=== PATIENT | female | born 1965 | race Caucasian/White ===

== ENCOUNTER 2023-07-15 10:04 | Outpatient (CLI) | payer BC, SELFPAY ==
[2023-07-15 16:51] LABS: Basophils % 0.4 % (0.1-2.0); Eosinophils % 0.1 % (0.1-12.0); Hematocrit 42.8 % (37.0-47.0); Hemoglobin 14.3 g/dL (12.2-16.2); Lymphocytes # 2.2 K/mm3 (0.7-4.5); Lymphocytes % 36.9 % (10-50); Mean Corpuscular HGB Conc 33.4 g/dL (31.8-35.4); Mean Corpuscular Volume 92.8 fl (81-99); Monocytes # 0.3 K/mm3 (0.1-1.0); Monocytes % 5.2 % (1.7-9.3); Neutrophils # 3.4 K/mm3 (1.8-7.8); Neutrophils % 57.4 % (37.0-80.0); Platelet Count 250 K/mm3 (142-424); Red Blood Count 4.61 M/mm3 (4.20-5.40); Red Cell Distribution Width 14.1 % (11.5-17.5); White Blood Count 5.9 K/mm3 (4.8-10.8)
[2023-07-15 17:23] LABS: Chloride 107 mmol/L (98-107); Potassium 3.7 mmoL/L (3.5-5.1); Sodium 140 mmol/L (136-145)
[2023-07-15 17:25] LABS: Alanine Aminotransferase 28 U/L (12-78); Aspartate Amino Transferase 26 U/L (14-36); Blood Urea Nitrogen 11 mg/dl (7-17); Estimated Glomerular Filt Rate 86 ml/min (>60); GFR (African American) 104 ML/MIN (>60)
[2023-07-15 17:26] LABS: Albumin Level 4.1 g/dl (3.5-5.0); Albumin/Globulin Ratio 1.4 (1.1-1.8); Alkaline Phosphatase 75 U/L (38-126); Anion Gap 12.7 mEq/L (5-15); Bilirubin,Total 0.5 mg/dl (0.2-1.3); Carbon Dioxide 24 mmol/L (22.0-30.0); Globulin 2.9 g/dL (1.3-3.2); Glucose 111 mg/dl (74-100)
[2023-07-15 17:43] LABS: Free Thyroxine Index 3.1 ug/dL (5.93-13.13); T4 (Thyroxine) 9.9 ug/dl (5.53-11.0); Triiodothryronine (T3) Uptake 31 % (23.5-40.5)
[2023-07-15 17:57] LABS: Thyroid Stimulating Hormone 1.65 uIU/mL (0.465-4.68)
[2023-07-15 18:12] LABS: Hemoglobin A1C 5.4 % (4.0-6.0)
[2023-07-15 19:11] LABS: Vitamin B12 502 pg/mL (239-931)
[2023-07-17 13:11] LABS: Thyroid Peroxidase Antibodies 10 IU/mL (0-34)
[2023-07-23 18:09] LABS: 1,25 Dihydroxy Vitamin D 60 pg/mL (.); 1,25-Dihydroxy, Vitamin D-2 <10 pg/mL (.); 1,25-Dihydroxy, Vitamin D-3 60 pg/mL (.)
== END 2023-07-15 23:59 | disposition home or self-care (01) ==
LOC: LAB.DROPOF 07-16 10:04
PROVIDERS: PCP Internal Medicine; Visit Provider Nurse Practitioner Psychiatric/Mental Health
DX: R53.83 Other fatigue (principal); Z79.899 Other long term (current) drug therapy
CPT/HCPCS: 80053; 82607; 82652; 83036; 84436; 84443; 84479; 85025; 86376

== ENCOUNTER 2023-08-01 08:06 | Outpatient (CLI) | payer BC, SELFPAY ==
--- NOTE | 2023-08-01 08:09 | XR_ITS ---
FINAL REPORT CLINICAL HISTORY: cervical neck pain with radiculopathy COMPARISON: None FINDINGS: CERVICAL SPINE 5 views were obtained. There is no acute fracture or malalignment. The vertebrae are normal in height. The disc spaces are preserved. The neuroforamen are adequately patent. No significant degenerative changes are present. IMPRESSION: No acute process. Reviewed, Interpreted and Dictated by Otto Hanson MD Transcribed by Haritha Dennis Authenticated and [facility]
--- NOTE | 2023-08-01 08:09 | XR_ITS ---
FINAL REPORT CLINICAL HISTORY: left knee pain COMPARISON: None FINDINGS: LEFT KNEE 3 views of the left knee were obtained. There is no acute fracture or dislocation. There is moderate medial compartment joint space narrowing. Soft tissues are unremarkable. IMPRESSION: Moderate changes of osteoarthritis without acute bony abnormality. Reviewed, Interpreted and Dictated by Otto Hanson MD Transcribed by Haritha Dennis Authenticated and [facility]
--- NOTE | 2023-08-01 08:09 | XR_ITS ---
FINAL REPORT CLINICAL HISTORY: right hip pain COMPARISON: None FINDINGS: RIGHT HIP Two views of the right hip and an AP view of the pelvis demonstrate no acute fracture or dislocation. The joint spaces appear normal. The visualized bony structures are well aligned. No soft tissue abnormality is seen. IMPRESSION: No acute bony abnormality. Reviewed, Interpreted and Dictated by Otto Hanson MD Transcribed by Haritha Dennis Authenticated and . [facility]
--- NOTE | 2023-08-01 08:09 | XR_ITS ---
FINAL REPORT CLINICAL HISTORY: right knee pain COMPARISON: None FINDINGS: 3 views of the right knee were obtained. There is no acute fracture or dislocation. There is moderate narrowing of the medial compartment joint space. There is no soft tissue abnormality. IMPRESSION: Moderate changes of osteoarthritis without acute process. Reviewed, Interpreted and Dictated by Otto Hanson MD Transcribed by Haritha Dennis Authenticated and [facility]
--- NOTE | 2023-08-01 08:09 | XR_ITS ---
FINAL REPORT CLINICAL HISTORY: left hip pain COMPARISON: None FINDINGS: LEFT HIP: Two views of the left hip with an AP view of the pelvis demonstrate no acute fracture or dislocation. The joint spaces appear normal. The visualized bony structures are well aligned. No soft tissue abnormality is seen. IMPRESSION: No acute bony abnormality. Reviewed, Interpreted and Dictated by Otto Hanson MD Transcribed by Haritha Dennis Authenticated and . [facility]
[2023-08-01 09:11] LABS: Erythrocyte Sedimentation Rate 29 mm/hr (0-30)
[2023-08-01 09:42] LABS: Chol/HDL Ratio 4.4 (1-3.5); Cholesterol 261 mg/dl (140-200); HDL Cholesterol 60 mg/dl (40-60); Iron 93 ug/dL (37-170); Magnesium 1.8 mg/dl (1.6-2.3); Triglycerides 227 mg/dl (30-150); VLDL Cholesterol 45 mg/dL (0-40)
[2023-08-01 09:52] LABS: Total Iron Binding Capacity 289 ug/dL (265-497)
[2023-08-01 09:53] LABS: Direct LDL Cholesterol 144.79 mg/dL (100-129)
[2023-08-01 10:00] LABS: 25-OH Vitamin D, Total 20.8 ng/mL (30-100)
[2023-08-13 10:59] LABS: Antinuclear Antibodies (ANA) Negative; RNA Polymerase IgG Ab <20
== END 2023-08-01 23:59 | disposition home or self-care (01) ==
LOC: LAB 08:07
PROVIDERS: PCP Nurse Practitioner Family; Visit Provider Nurse Practitioner Family
DX: M54.2 Cervicalgia (principal); M25.562 Pain in left knee; M25.552 Pain in left hip; M25.561 Pain in right knee; M25.551 Pain in right hip; E55.9 Vitamin D deficiency, unspecified; E78.5 Hyperlipidemia, unspecified; R53.83 Other fatigue; F41.9 Anxiety disorder, unspecified; F32.A Depression, unspecified; M19.90 Unspecified osteoarthritis, unspecified site; N95.1 Menopausal and female climacteric states; R94.6 Abnormal results of thyroid function studies; Z68.39 Body mass index [BMI] 39.0-39.9, adult
CPT/HCPCS: 36415; 72050; 73502; 73562; 80061; 82306; 82728; 83520; 83540; 83550; 83735; 85651; 86038

== ENCOUNTER 2024-04-23 16:20 | Outpatient (CLI) | payer OTHER, SELFPAY ==
[2024-04-23 12:14] LABS: Hematocrit 41.4 % (37.0-47.0); Lymphocytes # 1.8 K/mm3 (0.7-4.5); Lymphocytes % 35.2 % (10-50); Mean Corpuscular HGB Conc 33.8 g/dL (31.8-35.4); Mean Corpuscular Volume 88.7 fl (81-99); Mean Platelet Volume 10.3 fl (7.4-10.4); Monocytes # 0.4 K/mm3 (0.1-1.0); Monocytes % 6.9 % (1.7-9.3); Neutrophils % 57.5 % (37.0-80.0); Platelet Count 196 K/mm3 (142-424); Red Blood Count 4.67 M/mm3 (4.20-5.40); Red Cell Distribution Width 12.7 % (11.5-17.5); White Blood Count 5.2 K/mm3 (4.8-10.8)
[2024-04-23 12:52] LABS: Alanine Aminotransferase 28 U/L (12-78); Albumin Level 4.6 g/dl (3.5-5.0); Anion Gap 18.1 mEq/L (5-15); Aspartate Amino Transferase 28 U/L (14-36); Bilirubin,Total 0.6 mg/dl (0.2-1.3); Blood Urea Nitrogen 11 mg/dl (7-17); Calcium 9.7 mg/dl (8.4-10.2); Carbon Dioxide 25 mmol/L (22.0-30.0); Chloride 104 mmol/L (98-107); Estimated Glomerular Filt Rate 103 ml/min (>60); GFR (African American) 124 ML/MIN (>60); Globulin 2.5 g/dL (1.3-3.2); Glucose 87 mg/dl (74-100); Potassium 4.1 mmoL/L (3.5-5.1); Sodium 143 mmol/L (136-145); Total Protein,Serum 7.1 g/dl (6.3-8.2)
[2024-04-23 12:53] LABS: Albumin/Globulin Ratio 1.8 (1.1-1.8); Alkaline Phosphatase 63 U/L (38-126); Chol/HDL Ratio 5.2 (1-3.5); Cholesterol 268 mg/dl (140-200); HDL Cholesterol 52 mg/dl (40-60); Triglycerides 198 mg/dl (30-150); VLDL Cholesterol 40 mg/dL (0-40)
[2024-04-23 13:03] LABS: Direct LDL Cholesterol 163.29 mg/dL (100-129)
[2024-04-23 13:09] LABS: 25-OH Vitamin D, Total 24.1 ng/mL (30-100); Free T4 (Free Thyroxine) 1.09 ng/dl (0.78-2.19)
[2024-04-23 13:24] LABS: Thyroid Stimulating Hormone 1.72 uIU/mL (0.465-4.68)
[2024-04-23 13:35] LABS: HIV Combo NEGATIVE (Negative)
[2024-04-23 13:43] LABS: Hepatitis C Ab Qual. W/ RFX NEGATIVE (Negative)
[2024-04-23 13:59] LABS: Vitamin B12 672 pg/mL (239-931)
[2024-04-23 15:26] LABS: Hemoglobin A1C 5.2 % (4.0-6.0)
== END 2024-04-23 23:59 | disposition home or self-care (01) ==
LOC: LAB.DROPOF 16:20
PROVIDERS: PCP Nurse Practitioner Family; Visit Provider Nurse Practitioner Family
DX: R53.83 Other fatigue (principal); R03.0 Elevated blood-pressure reading, without diagnosis of hypertension; E78.5 Hyperlipidemia, unspecified; E55.9 Vitamin D deficiency, unspecified; Z68.41 Body mass index [BMI] 40.0-44.9, adult; Z13.1 Encounter for screening for diabetes mellitus; Z11.4 Encounter for screening for human immunodeficiency virus [HIV]; Z11.59 Encounter for screening for other viral diseases
CPT/HCPCS: 80053; 80061; 82306; 82607; 83036; 84439; 84443; 85025; 86803; 87389

== ENCOUNTER 2024-04-23 19:36 | Outpatient (CLI) | payer OTHER, SELFPAY ==
[2024-04-23 19:48] LABS: Microscopic, Urine URINE MICROSCOPIC (MICROSCOPIC)
[2024-04-23 20:44] LABS: Appearance,Urine CLEAR (Clear); Bilirubin,Urine Negative (Negative); Blood, Urine Negative (Negative); Color,Urine YELLOW (Yellow); Glucose,Urine (UA) Negative (Negative); Ketones,Urine Negative (Negative); Leukocyte Esterase,Urine Negative (Negative); Nitrate,Urine Negative (Negative); PH,Urine 6.5 (5.0-8.5); Protein,Urine Negative (Negative); Urobilinogen,Urine 0.2 EU/dl (0.2)
[2024-04-23 21:24] LABS: Bacteria,Urine 4+ /lpf; RBC,Urine Occasional #/hpf (0-3)
== END 2024-04-23 23:59 | disposition home or self-care (01) ==
LOC: LAB.DROPOF 19:37
PROVIDERS: PCP Nurse Practitioner Family; Visit Provider Nurse Practitioner Family
DX: R03.0 Elevated blood-pressure reading, without diagnosis of hypertension (principal)
CPT/HCPCS: 81001; 84156; 87086; 87088; 87186

== ENCOUNTER 2024-05-13 12:41 | Outpatient (CLI) | payer OTHER, SELFPAY ==
--- NOTE | 2024-05-13 12:45 | XR_ITS ---
FINAL REPORT CLINICAL HISTORY: right knee pain COMPARISON: None FINDINGS: RIGHT KNEE: 3 images of the right knee were obtained. There is no evidence of fracture or dislocation. There are moderate tricompartment degenerative changes, most prominent in the medial compartment. Mild osteopenia is present. No evidence of joint effusion is identified. There is no soft tissue abnormality identified. IMPRESSION: Moderate tricompartment degenerative changes as described without acute bony abnormality. Reviewed, Interpreted and Dictated by Colleen Lopez MD Transcribed by Jana Henning Authenticated and . [facility]
--- NOTE | 2024-05-13 12:45 | MM_ITS ---
PROCEDURE INFORMATION: Exam: MG Bilateral Screening 3D Mammography Exam date and time: 05/13/2024 1:05 PM Age: 58 years old Clinical indication: Screening examination TECHNIQUE: Imaging protocol: Bilateral Screening tomosynthesis and 2D mammography including computer-aided detection (CAD) when performed. COMPARISON: 1. MG DMNLR DIG MAMM-NEEDLE LOC-RT 12/25/2016 10:09 AM 2. MG DMDXUR DIG MAMM-DX UNI-RT W/CAD 12/25/2016 10:08 AM FINDINGS: MAMMOGRAPHY: Breast composition: There are scattered areas of fibroglandular density. Mass: No new or suspicious masses Architectural distortion: None. Calcifications: No suspicious calcifications. Asymmetric density: None. Skin thickening: None. Axillary adenopathy: None. IMPRESSION: No mammographic evidence of malignancy. Annual screening is recommended unless otherwise clinically indicated. ASSESSMENT: BI-RADS Category 1: Negative.
== END 2024-05-13 23:59 | disposition home or self-care (01) ==
LOC: RAD 12:43
PROVIDERS: PCP Nurse Practitioner Family; Visit Provider Nurse Practitioner Family
DX: M25.561 Pain in right knee (principal); Z12.31 Encounter for screening mammogram for malignant neoplasm of breast
CPT/HCPCS: 73562; 77063; 77067

== ENCOUNTER 2024-06-03 10:24 | Outpatient (CLI) | payer OTHER, SELFPAY | END 2024-06-03 23:59 | disposition home or self-care (01) | LOC: LAB.DROPOF 06-04 10:44 | PROVIDERS: PCP Student in an Organized Health Care Education/Training Program; Visit Provider Student in an Organized Health Care Education/Training Program | DX: N39.0 Urinary tract infection, site not specified (principal) | CPT/HCPCS: 87086; 87088; 87186 ==

== ENCOUNTER 2024-07-23 14:17 | Outpatient (CLI) | payer OTHER, SELFPAY | END 2024-07-23 23:59 | LOC: LAB.DROPOF 07-26 14:17 | PROVIDERS: PCP Nurse Practitioner Family; Visit Provider Nurse Practitioner Family | DX: J02.9 Acute pharyngitis, unspecified (principal) | CPT/HCPCS: 87070 ==

== ENCOUNTER 2024-08-09 08:51 | Day surgery (SDC) | payer OTHER, SELFPAY ==
[2024-08-06 10:03] VITALS: BMI 44.0
[2024-08-09 09:31] VITALS: BP 133/54; PULSE 70; RESP 18; TEMP 36.2
[2024-08-09] MEDS: LACTATED RINGERS 1000ML 1,000 ML 50 ML IV (09:47)
--- NOTE | 2024-08-09 10:11 | EXP.HP ---
History of Present Illness *Admission Date: 08/09/24 *Reason for visit:: Screening for colon cancer *History of present illness: Mrs. úNñez is a 59-year-old female who is here for screening for colon cancer. The examination is deemed medically necessary for initial screening colonoscopy. The patient has been seen, interviewed and examined prior to the procedure by both myself and the anesthesia provider. [facility] Disclaimer: The information contained in this section may have been updated after the patient was seen, as this information can be updated by other users. 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 Arthritis Surgical History H/O removal of cyst back of left leg History of partial hysterectomy 2010 History of ankle surgery -left ankle History of tubal ligation Family History Family/Other Hypertension Lupus Coronary artery disease Social History (Updated 08/09/24 @ 09:43 by Lani Chairez RN) Smoking Status: Never smoker second hand exposure: No alcohol intake: current counseling given: No substance use type: denies use counseling given: No current occupational status: unemployed Travel in the last 8 weeks?: None adopted: No caregiver/support person: Yes foster care: No household members: spouse and family housing: house lives independently: No marital status: number of children: 2 number of grandchildren: 3 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 Hx Recent Travel: No caffeine: Yes physical activity: none working smoke detector in home: Yes fire extinguisher in home: Yes carbon monox detector in home: No firearms in home: Yes firearms unloaded and locked: Yes do you feel safe at home: Yes victim of physical abuse: No victim of emotional abuse: No victim of sexual abuse: No would you like helpful sources: No Have you lived/traveled outside US in past 30 days?: No Contact w/someone who lives/traveled outside US past 30 days?: No Exposure to someone with infectious disease in past 14 days?: No Do you have a fever (greater than 100.4 F or 38 C)?: No Have you tested positive for COVID-19?: No Exposed to someone with COVID-19 in past 14 days?: No Do you have a sore throat?: No Do you have a cough?: No Do you have any weakness?: No Are you experiencing any nausea/vomitting?: No Do you have any diarrhea?: No Are you experiencing any unusual bleeding?: No Do you have any muscle aches/pain?: No Do you have any abdominal pain?: No Are you experiencing loss of taste or smell?: No Other Medical History Have you received the Pneumonia Vaccine: No Review of Systems Review of Systems Review of systems (narrative): Negative *Cardiovascular Comments: Negative *Gastrointestinal Comments: Negative *Genitourinary Comments: Negative *Musculoskeletal Comments: Negative *Neurologic Comments: Negative Meds Home Medications and Allergies Home Medications ?Medication ?Instructions ?Recorded ?Confirmed ?Type diphenhydramine 25 2 tab PO HS PRN pain/sleep 07/24/23 08/09/24 History mg-acetaminophen 500 mg tablet (Tylenol PM Extra Strength) coQ10 (ubiquinol) 100 mg capsule 100 mg PO BID #180 caps 08/01/23 08/09/24 Rx (Qunol Usman CoQ10) celecoxib 100 mg capsule (Celebrex) 100 mg PO BID #60 caps 04/22/24 08/09/24 Rx cholecalciferol (vitamin D3) 50 100 mcg (2 x 50 mcg (2,000 unit)) 04/24/24 08/09/24 Rx mcg (2,000 unit) capsule PO DAILY #180 caps lumateperone 42 mg capsule 42 mg PO DAILY #30 caps 07/21/24 08/09/24 Rx (Caplyta) paroxetine HCl 20 mg tablet (Paxil) 20 mg PO DAILY #30 tabs 07/21/24 08/09/24 Rx sodium,potassium,mag sulfates 17.5 See Rx Instructions PO .COMPLEX 07/27/24 08/09/24 Rx gram-3.13 gram-1.6 gram oral soln #354 mL (Suprep Bowel Prep Kit) estradiol 0.1 mg/24 hr weekly 1 patch transdermal WEEKLY #12 ea 07/30/24 08/09/24 Rx transdermal patch New Prescriptions to Start Prescriptions: Allergies Allergy/AdvReac Type Severity Reaction Status Date / Time codeine Allergy Mild Vomiting Verified 08/09/24 09:24 Exam Data for Last 24 hours Vital signs and Labs for Last 24 Hours: Temp Pulse Resp BP O2 Del Method 97.1 F L 70 18 133/54 L Room Air 08/09/24 09:31 08/09/24 09:31 08/09/24 09:31 08/09/24 09:31 08/09/24 09:31 I & O for Last 24 hours: Intake & Output 08/06/24 08/07/24 08/08/24 08/09/24 23:59 23:59 23:59 23:59 Weight 273 lb *Routine HEENT Exam Head: Present normocephalic Eye: Present EOMI and PERRL ENT: Present mucous membranes moist *Routine Neck Exam Neck: Present supple *Routine Respiratory Exam Respiratory: Present CTA bilaterally *Routine Cardiovascular Exam Cardiovascular: Present RRR *Routine Abdominal Exam Abdominal: Present soft and normoactive bowel sounds; Absent tenderness *Routine Rectal Exam Rectal:: deferred *Routine Genitalia Exam Genitalia:: deferred *Routine Extremities Exam Extremities: Absent cyanosis, clubbing or edema *Routine Skin Exam Skin: Present warm; Absent rash *Routine Neurological Exam Neurological: Present alert and oriented X3 Assessment and Plan *Assessment and plan (1) Screening for colon cancer: Status: Acute Category: Medical Code(s): Z12.11 - Encounter for screening for malignant neoplasm of colon Plan A/P: 1. Screening for colon cancer is the preprocedural diagnosis. The patient will be anesthetized/sedated using MAC sedation. The patient has been seen and examined. Cardiac and lung assessment prior to the examination is stable. Proceed with planned initial screening colonoscopy.
--- NOTE | 2024-08-09 10:14 | P.PNANES_ITS ---
[facility] Disclaimer: The information contained in this section may have been updated after the patient was seen, as this information can be updated by other users. 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 Arthritis Surgical History H/O removal of cyst back of left leg History of partial hysterectomy 2011 History of ankle surgery -left ankle History of tubal ligation Family History Family/Other Hypertension Lupus Coronary artery disease Social History (Updated 08/09/24 @ 09:43 by Lani Chairez RN) Smoking Status: Never smoker second hand exposure: No alcohol intake: current counseling given: No substance use type: denies use counseling given: No current occupational status: unemployed Travel in the last 8 weeks?: None adopted: No caregiver/support person: Yes foster care: No household members: spouse and family housing: house lives independently: No marital status: number of children: 2 number of grandchildren: 3 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 Hx Recent Travel: No caffeine: Yes physical activity: none working smoke detector in home: Yes fire extinguisher in home: Yes carbon monox detector in home: No firearms in home: Yes firearms unloaded and locked: Yes do you feel safe at home: Yes victim of physical abuse: No victim of emotional abuse: No victim of sexual abuse: No would you like helpful sources: No Have you lived/traveled outside US in past 30 days?: No Contact w/someone who lives/traveled outside US past 30 days?: No Exposure to someone with infectious disease in past 14 days?: No Do you have a fever (greater than 100.4 F or 38 C)?: No Have you tested positive for COVID-19?: No Exposed to someone with COVID-19 in past 14 days?: No Do you have a sore throat?: No Do you have a cough?: No Do you have any weakness?: No Are you experiencing any nausea/vomitting?: No Do you have any diarrhea?: No Are you experiencing any unusual bleeding?: No Do you have any muscle aches/pain?: No Do you have any abdominal pain?: No Are you experiencing loss of taste or smell?: No [facility] Anesthesia Checklist Patient Identification Patient Identification: Arm Band Structural Data Admitted From: Home Planned Operative Procedure/s: Colonoscopy Consent for Planned Operative Procedure(s) Verified: Yes Verified Documents: Surgical Consent and History and Physical NPO Status Verified Time NPO: 07:00 (finished prep) Additional verifications Anesthesia Reactions: No Airway Assessment Mallampati Score:: Class II C-Spine Mobility Assessed: Yes TMJ Mobility Assessed: Yes Dentition: Good Dentition Neurological Assessment Level of Consciousness: Awake, Alert and Appropriate Anesthesia Plan Anesthesia Risk discussed: Yes Anesthesia Plan: Verified ASA Class: III Anesthesia Type: MAC
--- NOTE | 2024-08-09 10:22 | HMH.PROCNOTE ---
[facility] Procedure Note Date: 08/09/24 Time: 10:37 Procedure Note:: Colonoscopy Procedure Report: Colonoscopy with cold snare polypectomy, cold biopsies and spot ink submucosal injection tattoo Endoscopist: Elgin Washington II, MD Referring physician: TALON Garzon Date of Procedure: August 09, 2024 Equipment: Olympus 190 variable stiffness pediatric colonoscope Sedation: MAC sedation Indication: Mrs. Núñez is a 59-year-old female who is here for initial screening colonoscopy. She reports no abdominal pain, weight loss, change in her bowel habits or rectal bleeding. She reports no family history of colon cancer. Procedure: Prior to the procedure, a history and physical exam was performed, and patient's medications and allergies were reviewed. The risks, benefits and alternatives of the sedation and procedure were discussed with the patient. All questions were answered and informed consent was obtained. The patient was brought to the procedure room. Patient identification and proposed procedure were verified by the physician and the nurse. The patient was placed in a left lateral decubitus position and the scope was passed under direct vision. Throughout the procedure, the patient's blood pressure, pulse, and oxygen saturations were monitored continuously. The colonoscopy was accomplished without difficulty. The patient tolerated the procedure well. Findings: On digital rectal examination there was normal rectal tone. There were no external hemorrhoids. The colonoscope was introduced through the anal canal to the rectum and advanced to the cecum. The ileocecal valve and appendiceal orifice were identified. The scope was advanced a short distance into the ileum which appeared grossly normal. The scope was then withdrawn into the colon. Within the descending colon at 50 cm from the anal verge was a fully circumferential apple core malignant colon cancer which was friable and fungating. This extended approximately 3 cm. There was some spontaneous bleeding with brushing through this with the colonoscope. The snare was utilized to take a couple of sections and multiple cold biopsies were obtained from this. Spot ink tattoo was injected submucosally 2 cm distal to this apple core lesion. There were 3 additional diminutive polyps (ascending x 1 (5 mm) and rectal x 2 (3 and 4 mm)). These were removed via cold snare polypectomy. Upon retroflexion within the rectum there were grade 1-2 internal hemorrhoids. The preparation was excellent throughout with [place] Preparation Score of 9. The cecal time was 15 minutes. Impression: 1. Apple core fully circumferential malignant mass of the descending colon (50 cm from anal verge)?status post multiple biopsies and spot ink submucosal tattoo 2. 3 additional diminutive colon polyps Plan: I will follow-up the biopsies and discussed the findings with the patient and family. I will make referral to colorectal surgery. We will do staging CT scan of chest, abdomen and pelvis. I will obtain CEA level.
[2024-08-09 10:41] VITALS: BP 124/74; PULSE 70; RESP 16; TEMP 37.1; O2SAT 96
[2024-08-09 10:51] VITALS: BP 114/74; PULSE 64; RESP 17; O2SAT 97
[2024-08-09 11:01] VITALS: BP 117/80; PULSE 61; RESP 17; O2SAT 96
[2024-08-09 11:06] LABS: Basophils % 0.2 % (0.1-2.0); Hematocrit 41.1 % (37.0-47.0); Hemoglobin 13.4 g/dL (12.2-16.2); Immature Granulocytes # 0.03 10^3uL; Immature Granulocytes % 0.5 %; Lymphocytes # 1.5 K/mm3 (0.7-4.5); Lymphocytes % 24.5 % (10-50); Mean Corpuscular HGB Conc 32.6 g/dL (31.8-35.4); Mean Corpuscular Hemoglobin 29.3 pg (27.0-31.2); Mean Corpuscular Volume 89.9 fl (81-99); Mean Platelet Volume 9.2 fl (7.4-10.4); Monocytes # 0.4 K/mm3 (0.1-1.0); Monocytes % 6.7 % (1.7-9.3); Neutrophils # 4.3 K/mm3 (1.8-7.8); Neutrophils % 68.1 % (37.0-80.0); Nucleated Red Blood Cells # 0 10^3/uL; Nucleated Red Blood Cells % 0 %; Platelet Count 180 K/mm3 (142-424); Red Blood Count 4.57 M/mm3 (4.20-5.40); Red Cell Distribution Width 14.3 % (11.5-17.5); Red Cell Distribution Width-SD 47.1 fL; White Blood Count 6.3 K/mm3 (4.8-10.8)
[2024-08-09 11:11] VITALS: BP 135/74; PULSE 62; RESP 17; TEMP 37.1; O2SAT 97
[2024-08-09 11:17] LABS: Albumin Level 4.2 g/dl (3.5-5.0); Chloride 107 mmol/L (98-107); Potassium 3.8 mmoL/L (3.5-5.1); Sodium 141 mmol/L (136-145)
[2024-08-09 11:20] LABS: Alanine Aminotransferase 24 U/L (12-78); Albumin/Globulin Ratio 1.4 (1.1-1.8); Alkaline Phosphatase 72 U/L (38-126); Anion Gap 7.8 mEq/L (5-15); Aspartate Amino Transferase 25 U/L (14-36); Bilirubin,Total 0.5 mg/dl (0.2-1.3); Blood Urea Nitrogen 10 mg/dl (7-17); Carbon Dioxide 30 mmol/L (22.0-30.0); Creatinine Clearance Estimated 81 mL/min (50-200); Estimated Glomerular Filt Rate 86 ml/min (>60); GFR (African American) 104 ML/MIN (>60); Globulin 2.9 g/dL (1.3-3.2); Total Protein,Serum 7.1 g/dl (6.3-8.2)
[2024-08-09 11:21] LABS: Calcium 9.5 mg/dl (8.4-10.2); Glucose 105 mg/dl (74-100)
[2024-08-09 12:24] LABS: Iron 108 ug/dL (37-170)
[2024-08-09 12:33] LABS: Total Iron Binding Capacity 315 ug/dL (265-497)
[2024-08-09 13:02] LABS: Ferritin 19.3 ng/ml (11.1-264)
[2024-08-10 08:13] LABS: CEA 1.8 ng/mL (0.0-4.7)
== END 2024-08-09 11:32 | disposition home or self-care (01) ==
PROVIDERS: PCP Nurse Practitioner Family; Visit Provider Internal Medicine Gastroenterology
PROC: 0DJD8ZZ Inspection of Lower Intestinal Tract, Via Natural or Artificial Opening Endoscopic (ICD-10-PCS; CPT 45378; principal; 2024-08-09 10:30)
DX: Z12.11 Encounter for screening for malignant neoplasm of colon (principal); C18.6 Malignant neoplasm of descending colon; D12.2 Benign neoplasm of ascending colon; K63.5 Polyp of colon; Z79.899 Other long term (current) drug therapy; Z88.5 Allergy status to narcotic agent
CPT/HCPCS: 45380; 45381; 45385; 36415; 80053; 82378; 82728; 83540; 83550; 85025; J7120

== ENCOUNTER 2024-08-20 10:34 | Outpatient (CLI) | payer OTHER, SELFPAY ==
--- OUTSIDE RECORDS SUMMARY | 2024-08-20 10:36 | XMS_ITS | Clinical Summary ---
Author Organization Healthcare Address [address] [place] [address] Care Team Providers Care Photogrammetric Engineer Name Role Phone Unavailable Primary Care Provider Unavailabl e Social History Tobacco Use Types Packs/Day Years Used Date Smoking Tobacco: Every Day Comments Unknown Sex and Gender Information Value Date Recorded Sex Assigned at Not on file Legal Sex Female 8:26 PM EDT Gender Identity Not on file Sexual Orientation Not on file Last Filed Vital Signs Vital Sign Reading Time Taken Comments Blood Pressure - - Pulse - - Temperature - - Respiratory Rate - - Oxygen Saturation - - Inhaled Oxygen Concentration - - Weight 105 kg (232 lb 4 oz) 05/03/2014 4:[address] Height 170.2 cm (5' 7 ) 12/09/2013 3:14 PM EDT Body Mass Index 36.38 12/09/2013 3:14 PM EDT Plan of Treatment Not on file
--- NOTE | 2024-08-20 10:45 | CT_ITS ---
FINAL REPORT TECHNIQUE: Pre-and postcontrast axial CT images of the abdomen and pelvis were obtained. Coronal reformatted images were also obtained and reviewed. Oral contrast was also administered. This study was performed with techniques to keep radiation doses as low as reasonably achievable (ALARA). Individualized dose reduction techniques using automated exposure control or adjustment of mA and/or kV according to the patient's size were employed. CLINICAL HISTORY: [facility] descending colon cancer-staging COMPARISON: None. FINDINGS: Pre infusion images demonstrate no evidence of kidney stones. On the post infusion images, the lung bases are clear. Moderate fatty infiltration is noted of the liver. The gallbladder is present. The spleen is mildly enlarged. The pancreas, adrenal glands, and kidneys are unremarkable. The appendix is unremarkable. There is a segment of mucosal thickening of the proximal descending colon well seen on images 48-55 of series 5. On coronal images, this abnormality measures 4.5 cm in craniocaudal dimension and findings are consistent with patient's known colonic neoplasia. There is no pelvic free fluid. The urinary bladder is incompletely distended. IMPRESSION: Segment of mucosal thickening proximal descending colon consistent with known colonic neoplasia. Reviewed, Interpreted and Dictated by Otto Hanson MD Transcribed by Haritha Dennis Authenticated and [facility]
[2024-08-20] MEDS: IOPAMIDOL-370 (76%);100ML BOTTLE 75 ML IV (10:49)
[2024-08-20] MEDS: BARIUM SULFATE(READI-CAT2);450ML BOTTLE 450 ML PO (10:49)
[2024-08-20] MEDS: SODIUM CHLORIDE 0.9% 10ML SYR (RAD ONLY) 10 ML IV (10:49)
== END 2024-08-20 23:59 | disposition home or self-care (01) ==
LOC: RAD 10:34
PROVIDERS: PCP Nurse Practitioner Family; Visit Provider Internal Medicine Gastroenterology
DX: C18.6 Malignant neoplasm of descending colon (principal)
CPT/HCPCS: 74178; Q9967

== ENCOUNTER 2024-09-01 14:19 | Outpatient (CLI) | payer OTHER, SELFPAY ==
--- OUTSIDE RECORDS SUMMARY | 2024-09-01 14:22 | XMS_ITS | Clinical Summary ---
Author Organization Healthcare Address [address] [place] [address] Care Team Providers Care First Press Operator Name Role Phone Unavailable Primary Care Provider [...]
[2024-09-01] MEDS: SODIUM CHLORIDE 0.9% 10ML SYR (RAD ONLY) 10 ML IV (14:30)
[2024-09-01] MEDS: IOPAMIDOL-370 (76%);100ML BOTTLE 75 ML IV (14:30)
--- NOTE | 2024-09-01 14:30 | CT_ITS ---
FINAL REPORT TECHNIQUE: Axial CT with contrast with 3-D MIP reconstruction This study was performed with techniques to keep radiation doses as low as reasonably achievable, (ALARA). Individualized dose reduction techniques using automated exposure control or adjustment of mA and/or kV according to the patient's size were employed. CLINICAL HISTORY: colon cancer scheduled for surgery COMPARISON: None FINDINGS: Pulmonary vessels enhance in normal fashion without evidence of embolism. Thoracic aorta shows no dissection or aneurysm. No pulmonary mass or infiltrate is present. There is evidence of old granulomatous disease. There is no significant pleural effusion. There is no significant pericardial effusion. No mediastinal or hilar adenopathy is present. IMPRESSION: 1. No evidence of thoracic metastatic disease. Reviewed, Interpreted and Dictated by Colleen Lopez MD Transcribed by Jana Henning Authenticated and [facility]
== END 2024-09-01 23:59 | disposition home or self-care (01) ==
LOC: RAD 14:20
PROVIDERS: PCP Nurse Practitioner Family; Visit Provider Internal Medicine Medical Oncology
DX: C18.6 Malignant neoplasm of descending colon (principal)
CPT/HCPCS: 71260; Q9967

== ENCOUNTER 2024-09-14 10:49 | Outpatient (CLI) | payer OTHER, SELFPAY ==
--- OUTSIDE RECORDS SUMMARY | 2024-09-14 10:53 | XMS_ITS | Clinical Summary ---
Author Organization Healthcare Address [address] [place] [address] Care Team Providers Care Hearing Examiner Name Role Phone Unavailable Primary Care Provider [...]
--- NOTE | 2024-09-14 11:19 | ECG_ITS ---
APPROVED REPORT Exam: Resting ECG HR:69 bpm ECG Measurements Heart Rate 69 AXES TX 196 P 50 QRSd 90 QRS 28 QT 363 T 67 QTc 382 Conclusion SINUS RHYTHM LOW QRS VOLTAGE IN PRECORDIAL LEADS -with late R wave progression BORDERLINE ECG UNCONFIRMED REPORT Electronically signed by : Derek Ricci MD 09/15/2024 08:20:36
[2024-09-14 11:36] LABS: Hematocrit 41.4 % (37.0-47.0); Hemoglobin 13.7 g/dL (12.2-16.2); Immature Granulocytes % 0.2 %; Mean Corpuscular HGB Conc 33.1 g/dL (31.8-35.4); Mean Corpuscular Hemoglobin 29.1 pg (27.0-31.2); Mean Corpuscular Volume 88.1 fl (81-99); Nucleated Red Blood Cells % 0 %; Platelet Count 166 K/mm3 (142-424); Red Blood Count 4.70 M/mm3 (4.20-5.40); Red Cell Distribution Width-SD 44.6 fL; White Blood Count 4.3 K/mm3 (4.8-10.8)
[2024-09-14 11:46] LABS: INR 0.95 (0.9-1.1); Prothrombin Time 10.6 seconds (10.1-12.5)
[2024-09-14 11:47] LABS: Alanine Aminotransferase 21 U/L (12-78); Albumin Level 4.4 g/dl (3.5-5.0); Albumin/Globulin Ratio 1.3 (1.1-1.8); Alkaline Phosphatase 65 U/L (38-126); Anion Gap 16.8 mEq/L (5-15); Aspartate Amino Transferase 25 U/L (14-36); Bilirubin,Total 0.5 mg/dl (0.2-1.3); Blood Urea Nitrogen 10 mg/dl (7-17); Calcium 9.5 mg/dl (8.4-10.2); Carbon Dioxide 27 mmol/L (22.0-30.0); Chloride 102 mmol/L (98-107); Creatinine,Serum 0.70 mg/dl (0.52-1.04); Estimated Glomerular Filt Rate 86 ml/min (>60); GFR (African American) 104 ML/MIN (>60); Globulin 3.3 g/dL (1.3-3.2); Glucose 102 mg/dl (74-100); Potassium 3.8 mmoL/L (3.5-5.1); Sodium 142 mmol/L (136-145); Total Protein,Serum 7.7 g/dl (6.3-8.2)
== END 2024-09-14 23:59 | disposition home or self-care (01) ==
LOC: PREOP 10:50
PROVIDERS: PCP Nurse Practitioner Family; Visit Provider Surgery
DX: Z01.810 Encounter for preprocedural cardiovascular examination (principal); Z01.812 Encounter for preprocedural laboratory examination; C18.9 Malignant neoplasm of colon, unspecified; R94.31 Abnormal electrocardiogram [ECG] [EKG]
CPT/HCPCS: 80053; 85025; 85610; 93005

== ENCOUNTER 2024-09-20 12:35 | Outpatient (CLI) | payer OTHER, SELFPAY ==
--- OUTSIDE RECORDS SUMMARY | 2024-09-20 12:38 | XMS_ITS | Clinical Summary ---
Author Organization Healthcare Address [address] [place] [address] Care Team Providers Care Stamping Die Maker Bench Name Role Phone Unavailable Primary Care Provider [...]
--- NOTE | 2024-09-20 13:56 | CA_ITS ---
APPROVED REPORT EXAM: Comprehensive 2D, Doppler, and color-flow Echocardiogram Patient Access Registrar: Temitope Berrios RT(R) Ht: 5 ft 6 in Wt: 279lbs BSA: 2.30 BP: 158/80 mmHg Indications: Dyspnea Echo Enhancing Agent Indication: Endocardial border delineation Agent(s) / Amount(s) Used: Definity 2 cc M-Mode Dimensions RVDd 3.04 cm (0.9-2.6) LA Diam 3.95 cm (1.9-4.0) LVDd 4.78 cm (3.5-5.7) LVDs 3.57 cm (3.5-5.7) IVSd 0.85 cm (0.6-1.1) PWd 0.76 cm (0.6-1.1) EF (Teich) 50.00% FS 25.30% EDV (Teich) 106.50 mL ESV (Teich) 53.30 mL LV Diastology E Decel Time 183 (160-240 msec) E/A Ratio 1.2 Mitral Valve MV E Max Luther. 76.0 (40-130 cm/s) MV A Velocity 64.0 (40-130 cm/s) E/A Ratio 1.18 MV PHT 54.0 ms Left Ventricle The left ventricle is normal size. The left ventricular systolic function is normal. The left ventricular ejection fraction is within the normal range. There is increased LV wall thickness. There is normal LV segmental wall motion. Diastolic function is indeterminate. No left ventricle thrombus noted on this study. LVEF is 55%. Right Ventricle The right ventricle is normal size. The right ventricular systolic function is normal. Atria The left atrium size is normal. The right atrium size is normal. There is no Doppler evidence of interatrial shunt. Aortic Valve Aortic valve is mildly thickened. There is no aortic valvular stenosis. No aortic regurgitation is present. Mitral Valve The mitral valve is normal in structure. No evidence of mitral valve stenosis. Trace mitral regurgitation. Tricuspid Valve Tricuspid valve is grossly normal in structure and function. Trace tricuspid regurgitation. There is insufficient TR jet to estimate RVSP. Pulmonic Valve The pulmonary valve is normal in structure. Trace pulmonic regurgitation. Great Vessels The aortic root is normal in size. IVC is normal in size and collapses >50% with inspiration. Pericardium There is no pericardial effusion. Other Information Study Quality: Technically Difficult Conclusion Technically difficult study due to poor acoustic windows. Normal biventricular systolic function. No significant valvular stenosis or regurgitation. Electronically signed by : Myah Mendiola MD 09/20/2024 23:46:24
== END 2024-09-20 23:59 | disposition home or self-care (01) ==
LOC: RT 12:36
PROVIDERS: PCP Nurse Practitioner Family; Visit Provider Nurse Practitioner Family
DX: Z01.810 Encounter for preprocedural cardiovascular examination (principal); R06.02 Shortness of breath
CPT/HCPCS: 93306

== ENCOUNTER 2024-09-21 12:40 | Outpatient (CLI) | payer OTHER, SELFPAY ==
--- NOTE | 2024-09-21 | CA_ITS ---
APPROVED REPORT Exam: Pharmacologic Technologist: Mabel Lira Ht: 5 ft 6 in Wt: 279 lbs BSA: 2.30 m2 HR: 74 bpm BP: 150/69 mmHg Stress Test Details Test: Lexiscan HR Resting HR: 74 bpm Max Heart Rate (APMHR): 161.962258 bpm Max HR Achieved: 96 bpm Target HR (85% APMHR): 136.065671 bpm % of APMHR: 59.63 Recovery HR: 81 bpm BP Resting BP: 150.0/69.0 mmHg Max BP: 157.0/82.0 mmHg Recovery BP: 151.0/90.0 mmHg ECG Stress ECG Conclusion Symptoms: Dyspnea, chest pressure, lightheaded Arrhythmias/Ectopy: - ST-T Changes: Less than [address] depression Conclusion: EKG unremarkable due to Lexiscan infusion. Electronically signed by : Myah Mendiola MD 09/23/2024 01:30:39
--- OUTSIDE RECORDS SUMMARY | 2024-09-21 12:43 | XMS_ITS | Clinical Summary ---
Author Organization Healthcare Address [address] [place] [address] Care Team Providers Care Effervescent Salts Compounder Name Role Phone Unavailable Primary Care Provider [...]
--- NOTE | 2024-09-21 13:00 | NM_ITS ---
APPROVED REPORT Exam: Nuclear Stress Test Indication: cp..soa Patient Location: Outpatient Stress Tech: Mabel Lira NM Tech:Jacquelin Thompson, ARRT, RT (R)(N) Ht: 5 ft 6 in Wt: 279 lbs Bra Size: 38ddd HR: 70 bpm BP: 150/69 mmHg BSA: 2.30 m2 TID: 1.52 BMI: 45.0 History: cp..soa Procedure: Patient received 0.4 mg of intravenous Lexiscan, resting heart rate 70 bpm, resting blood pressure 150/69 mmHg, with Lexiscan maximum heart rate achieved was 97 bpm which is 85 % of the maximum predicted heart rate and blood pressure was 157/82 mmHg. With Lexiscan, patient denied any complaint of chest pain. Cardiac Stress and Resting SPECT Images: Cardiac Stress and Resting SPECT images were obtained using technetium 99m Myoview 32.0 mCi stress and 10.40 mCi at rest. Technically difficult study due to significant soft tissue overlap with the cardiac borders. This may affect the diagnostic interpretation of the study findings. Resting on stress imaging in supine and prone positions demonstrate a medium sized, moderate, reversible perfusion defect in the mid to distal anterior LV wall. There is increase in transient ischemic dilatation ratio (TID 1.52), which may be suggestive of possible multivessel disease or balanced ischemia. Gated imaging demonstrates normal global and regional LV systolic function. LVEF is calculated 70%. Conclusion: Technically difficult study. Medium sized, moderate, reversible perfusion defect in the mid to distal anterior LV wall. Findings are suggestive of reversible ischemia. There is increase in transient ischemic dilatation ratio (TID 1.52), which may be suggestive of possible multivessel disease or balanced ischemia. Gated imaging demonstrates normal global and regional LV systolic function. LVEF is calculated 70%. Electronically signed by : Myah Mendiola MD 09/22/2024 11:50:22
[2024-09-21] MEDS: ISOTOPE MYOVIEW (PER STUDY) 1 DOSE IV (13:56)
[2024-09-21] MEDS: SODIUM CHLORIDE 0.9% 10ML SYR (RAD ONLY) 10 ML IV ×2 (13:56)
== END 2024-09-21 23:59 | disposition home or self-care (01) ==
LOC: RAD 12:41
PROVIDERS: PCP Nurse Practitioner Family; Visit Provider Nurse Practitioner Family
DX: Z01.810 Encounter for preprocedural cardiovascular examination (principal); R94.39 Abnormal result of other cardiovascular function study; R06.02 Shortness of breath; R94.31 Abnormal electrocardiogram [ECG] [EKG]; R03.0 Elevated blood-pressure reading, without diagnosis of hypertension; R53.83 Other fatigue; R07.89 Other chest pain
CPT/HCPCS: 78452; 93016; 93017; 93018; A9502; J2785

== ENCOUNTER 2024-09-24 07:29 | Day surgery (SDC) | payer OTHER, SELFPAY ==
[2024-09-24] VITALS (11 sets, daily range): BP systolic 114–161; BP diastolic 66–99; PULSE 61–76; RESP 16–18; TEMP 36.6; O2SAT 90–99; BMI 44.6
--- NOTE | 2024-09-24 07:09 | IR_ITS ---
APPROVED REPORT Patient Location: Outpatient Dial Maker: GRISELDA Tovar RT (R) PROCEDURES Left heart catheterization Left ventriculogram Selective coronary angiogram INDICATION Abnormal Myoview, Angina pectoris Informed consent was obtained prior to the procedure. COMPLICATIONS None Estimated Blood Loss: Less than 10 mls TECHNIQUE One percent lidocaine used to anesthetize the right anterior aspect of the wrist. The right radial artery was accessed via the Seldinger technique. A 6 [place] Citizen sheath was placed in the right radial artery. 2.5 mg of Verapamil, 800 mcg of nitroglycerin, 1mg Lidocaine and 5000 U Heparin were given through the arterial sheath. The JL3 catheter was also used to perform left heart catheterization, left ventriculogram and selective coronary angiogram. At the end of the procedure the sheath was removed good hemostasis was achieved using Traclet band, patient was transferred to the postop holding area in stable condition. ANGIOGRAPHIC RESULTS The left main artery Normal The left anterior descending artery Normal The circumflex artery Normal The right coronary artery Normal The KEATING ventriculogram reveals Normal 65% The left ventricular end-diastolic pressure Severely elevated at 30 mmHg IMPRESSION Normal coronary arteries Normal ejection fraction Severely elevated LVEDP PLAN 1. Start Bumex 1 mg p.o. daily plus Aldactone 50 mg daily 2. Recommend weight loss exercise 3. Cardiac rehabilitation for HFpEF Electronically signed by : Clif Ornelas MD 09/24/2024 10:19:28
[2024-09-24 08:22] LABS: Hematocrit 42.7 % (37.0-47.0); Hemoglobin 14.1 g/dL (12.2-16.2); Immature Granulocytes % 0.7 %; Mean Corpuscular HGB Conc 33.0 g/dL (31.8-35.4); Mean Corpuscular Hemoglobin 29.6 pg (27.0-31.2); Mean Corpuscular Volume 89.5 fl (81-99); Nucleated Red Blood Cells % 0 %; Platelet Count 214 K/mm3 (142-424); Red Blood Count 4.77 M/mm3 (4.20-5.40); Red Cell Distribution Width-SD 45.2 fL; White Blood Count 5.5 K/mm3 (4.8-10.8)
[2024-09-24 08:34] LABS: Anion Gap 14.0 mEq/L (5-15); Blood Urea Nitrogen 14 mg/dl (7-17); Calcium 10.0 mg/dl (8.4-10.2); Carbon Dioxide 29 mmol/L (22.0-30.0); Chloride 103 mmol/L (98-107); Creatinine Clearance Estimated 95 mL/min (50-200); Creatinine,Serum 0.60 mg/dl (0.52-1.04); Estimated Glomerular Filt Rate 102 ml/min (>60); GFR (African American) 124 ML/MIN (>60); Glucose 105 mg/dl (74-100); Potassium 4.0 mmoL/L (3.5-5.1); Sodium 142 mmol/L (136-145)
[2024-09-24] MEDS: LIDOCAINE 1% 10ML MDV 10 ML IJ (09:49)
[2024-09-24] MEDS: HEPARIN 1,000 UNITS/ML 10ML VIAL (CATH LAB) 5000 UNIT IV (09:49)
[2024-09-24] MEDS: VERAPAMIL 2.5MG/ML 2ML VIAL 2.5 MG IV (09:49)
[2024-09-24] MEDS: HEPARIN 1,000 UNITS/500ML NS (CATH LAB) 3000 UNIT IV (09:49)
[2024-09-24] MEDS: NITROGLYCERIN 800MCG/8ML SYR (CATH LAB) 800 MCG IA (09:49)
[2024-09-24] MEDS: 0.9 % SODIUM CHLORIDE 500 ML 25 ML IV (09:49)
[2024-09-24] MEDS: FENTANYL 100MCG/2ML VIAL 50 MCG IV (10:13)
[2024-09-24] MEDS: MIDAZOLAM HCL 1MG/ML 5ML VIAL 1 MG IV (10:13)
[2024-09-24] MEDS: IOPAMIDOL-370 (76%);100ML BOTTLE 50 ML IV (12:50)
== END 2024-09-24 12:45 | disposition home or self-care (01) ==
PROVIDERS: PCP Nurse Practitioner Family; Visit Provider Internal Medicine
PROC: 4A023N7 Measurement of Cardiac Sampling and Pressure, Left Heart, Percutaneous Approach (ICD-10-PCS; CPT 93452; principal; 2024-09-24 10:45)
DX: I20.89 Other forms of angina pectoris (principal); R94.39 Abnormal result of other cardiovascular function study; R94.31 Abnormal electrocardiogram [ECG] [EKG]; C18.9 Malignant neoplasm of colon, unspecified; E78.5 Hyperlipidemia, unspecified; Z79.84 Long term (current) use of oral hypoglycemic drugs; Z79.890 Hormone replacement therapy; Z79.1 Long term (current) use of non-steroidal anti-inflammatories (NSAID); Z79.899 Other long term (current) drug therapy; Z88.5 Allergy status to narcotic agent; Z82.49 Family history of ischemic heart disease and other diseases of the circulatory system
CPT/HCPCS: 80048; 85025; 93458; 99152; C1725; C1769; J1200; J1644; J3010; J7040; Q9967

== ENCOUNTER 2024-09-29 11:04 | Outpatient (CLI) | payer OTHER, SELFPAY ==
--- OUTSIDE RECORDS SUMMARY | 2024-09-29 11:07 | XMS_ITS | Clinical Summary ---
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
[2024-09-29 11:56] LABS: Chloride 102 mmol/L (98-107)
[2024-09-29 11:57] LABS: Potassium 4.2 mmoL/L (3.5-5.1); Sodium 136 mmol/L (136-145)
[2024-09-29 12:00] LABS: Anion Gap 9.2 mEq/L (5-15); Blood Urea Nitrogen 10 mg/dl (7-17); Calcium 9.7 mg/dl (8.4-10.2); Carbon Dioxide 29 mmol/L (22.0-30.0); Creatinine,Serum 0.60 mg/dl (0.52-1.04); Estimated Glomerular Filt Rate 102 ml/min (>60); GFR (African American) 124 ML/MIN (>60); Glucose 90 mg/dl (74-100)
== END 2024-09-29 23:59 | disposition home or self-care (01) ==
LOC: LAB 11:05
PROVIDERS: PCP Nurse Practitioner Family; Visit Provider Internal Medicine
DX: E78.5 Hyperlipidemia, unspecified (principal); R06.02 Shortness of breath; R03.0 Elevated blood-pressure reading, without diagnosis of hypertension
CPT/HCPCS: 36415; 80048

== ENCOUNTER 2024-10-04 06:21 | Inpatient (IN) | payer OTHER, SELFPAY ==
[2024-09-15 08:09] VITALS: BMI 43.5
--- NOTE | 2024-09-15 08:51 | SUR.PREOP ---
Cardiac clearance appointment scheduled for 09/16 @2:45 per anesthesia recommendation. Pt. notified, verbalized understanding.
--- NOTE | 2024-09-17 13:39 | SUR.PREOP ---
Cardiology appointment notes reviewed. Pt to have further testing and subsequent cardiology followup to determine clearance status. ECHO scheduled for 09/20, stress test and followup yet to be scheduled. Notified BJ in Dr. Mitchell's office of current status, will determine if procedure needs to be postponed once all testing is scheduled.
[2024-10-04] VITALS (21 sets, daily range): BP systolic 103–140; BP diastolic 55–78; PULSE 81–106; RESP 12–20; TEMP 36.1–43; O2SAT 88–97; BMI 43.5; BMI 42.5
[2024-10-04] MEDS: 0.9 % SODIUM CHLORIDE 1000ML 1,000 ML 25 ML IV (06:42)
--- NOTE | 2024-10-04 06:44 | EXP.GEN.HP ---
HPI HPI HPI: This is a 59-year-old female who presents for partial colectomy for recently-diagnosed adenocarcinoma. She has undergone cardiology evaluation including myocardial perfusion scan on September 21, 2024 and left heart catheterization on September 24, 2024. She has been diagnosed with heart failure with preserved ejection fraction. She is considered an elevated operative risk but the risk is non-modifiable and unlikely to be further mitigated by additional preoperative cardiac workup . Forwarded from office note dated August 25, 2024: This is a 59-year-old female who recently underwent colonoscopy. She was diagnosed with a left-sided colon cancer and the surgical service was consulted. Colonoscopy dated August 09, 2024 reviewed. Apple core circumferential mass at 50 cm noted. Distal spot ink submucosal tattoo completed. Pathology report reviewed. Invasive moderately-differentiated adenocarcinoma confirmed. Labs dated August 09, 2024 reviewed. CEA 1.8. Hemoglobin 13.4. Platelet count 180. Potassium 3.8. LFTs normal. CT scan of abdomen/pelvis dated August 20, 2024 reviewed. No definitive evidence of metastatic disease noted. PFSH PFSH Disclaimer: The information contained in this section may have been updated after the patient was seen, as this information can be updated by other users. Medical History Other chest pain Pre-operative cardiovascular examination Chest pain Abnormal ECG SOB (shortness of breath) Decreased libido Menopausal syndrome Cervical pain (neck) Left hip pain Radiculopathy affecting upper extremity Memory loss of unknown cause Recurrent major depression resistant to treatment Arthritis Surgical History History of cardiac cath H/O removal of cyst back of left leg History of partial hysterectomy 2010 History of ankle surgery -left ankle History of tubal ligation Family History Family/Other Hypertension Lupus Coronary artery disease Social History Smoking Status: Never smoker second hand exposure: No alcohol intake: never counseling given: No substance use type: denies use counseling given: No current occupational status: unemployed Travel in the last 8 weeks?: None adopted: No caregiver/support person: Yes foster care: No household members: spouse and family housing: house lives independently: No marital status: number of children: 2 number of grandchildren: 3 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 Hx Recent Travel: No caffeine: Yes physical activity: none working smoke detector in home: Yes fire extinguisher in home: Yes carbon monox detector in home: No firearms in home: Yes firearms unloaded and locked: Yes do you feel safe at home: Yes victim of physical abuse: No victim of emotional abuse: No victim of sexual abuse: No would you like helpful sources: No Have you lived/traveled outside US in past 30 days?: No Contact w/someone who lives/traveled outside US past 30 days?: No Exposure to someone with infectious disease in past 14 days?: No Do you have a fever (greater than 100.4 F or 38 C)?: No Have you tested positive for COVID-19?: No Exposed to someone with COVID-19 in past 14 days?: No Do you have a sore throat?: No Do you have a cough?: No Do you have any weakness?: No Do you have any diarrhea?: No Are you experiencing any unusual bleeding?: No Do you have any muscle aches/pain?: No Do you have any abdominal pain?: No Are you experiencing loss of taste or smell?: No Other Medical History Have you received the Pneumonia Vaccine: No Meds Home Medications and Allergies Home Medications ?Medication ?Instructions ?Recorded ?Confirmed ?Type coQ10 (ubiquinol) 100 mg capsule 100 mg PO BID #180 caps 08/01/23 10/04/24 Rx (Qunol Usman CoQ10) celecoxib 100 mg capsule (Celebrex) 100 mg PO BID #60 caps 04/22/24 10/04/24 Rx cholecalciferol (vitamin D3) 50 100 mcg (2 x 50 mcg (2,000 unit)) 04/24/24 10/04/24 Rx mcg (2,000 unit) capsule PO DAILY #180 caps estradiol 0.1 mg/24 hr weekly 1 patch transdermal WEEKLY #12 ea 07/30/24 10/04/24 Rx transdermal patch lumateperone 42 mg capsule 42 mg PO DAILY #30 caps 09/15/24 10/04/24 Rx (Caplyta) paroxetine HCl 40 mg tablet 40 mg PO DAILY #30 tabs 09/15/24 10/04/24 Rx temazepam 15 mg capsule 15 mg PO HS #30 caps 09/15/24 10/04/24 Rx bumetanide 1 mg tablet 1 mg PO DAILY #30 tabs 09/24/24 10/04/24 Rx dapagliflozin propanediol 10 mg 10 mg PO DAILY #30 tabs 09/29/24 10/04/24 Rx tablet (Farxiga) spironolactone 25 mg tablet 25 mg PO DAILY #30 tabs 09/30/24 10/04/24 Rx (Aldactone) New Prescriptions to Start Prescriptions: Allergies Allergy/AdvReac Type Severity Reaction Status Date / Time codeine Allergy Mild Vomiting Verified 10/04/24 06:47 Exam Constitutional Constitutional: no acute distress *Routine HEENT Exam Head: Present normocephalic Eye: Present EOMI ENT: Present mucous membranes moist *Routine Neck Exam Neck: Present full ROM *Routine Respiratory Exam Respiratory: Absent respiratory distress *Routine Cardiovascular Exam Cardiovascular: Absent tachycardia *Routine Abdominal Exam Abdominal: Present soft *Routine Rectal Exam Rectal:: deferred *Routine Genitalia Exam Genitalia:: deferred *Routine Extremities Exam Extremities: Present full ROM *Routine Skin Exam Skin: Absent erythema *Routine Neurological Exam Neurological: Present alert Assessment and Plan *Assessment and plan (1) Cancer of descending colon: Status: Acute Category: Medical Code(s): C18.6 - Malignant neoplasm of descending colon (2) (HFpEF) heart failure with preserved ejection fraction: Status: Acute Qualifiers: Heart failure chronicity: chronic Qualified Code(s): I50.32 - Chronic diastolic (congestive) heart failure Category: Medical Code(s): I50.30 - Unspecified diastolic (congestive) heart failure (3) Bipolar II disorder, moderate, depressed, with anxious distress: Status: Acute Category: Medical Code(s): F31.81 - Bipolar II disorder (4) HLD (hyperlipidemia): Status: Acute Qualifiers: Hyperlipidemia type: unspecified Qualified Code(s): E78.5 - Hyperlipidemia, unspecified Category: Medical Code(s): E78.5 - Hyperlipidemia, unspecified (5) Elevated BP without diagnosis of hypertension: Status: Acute Category: Medical Code(s): R03.0 - Elevated blood-pressure reading, without diagnosis of hypertension Plan Partial colectomy today (left colectomy versus extended left colectomy versus splenic flexure colectomy versus extended sigmoid colectomy pending intraoperative findings) I have discussed the risks and benefits including, but not limited to: Bleeding Infection Damage to surrounding tissue Inherent risks of sedation The patient agrees to proceed.
--- NOTE | 2024-10-04 06:52 | EXP.COCOPNOT ---
Date of procedure: 10/04/24 Pre-op Diagnosis:: Adenocarcinoma of the colon (50 cm from anal verge) Post-op Diagnosis:: Same Procedure performed:: Left hemicolectomy Surgeon:: Fer Mitchell MD WILDLIFE CONSERVATION PROFESSOR:: Colt Grier Anesthesia: GETA Estimated blood loss (mL): 250 Operative findings:: Tattoo noted at splenic flexure Surrounding inflammatory response throughout left upper quadrant secondary to tattoo placement or known malignancy Operative note:: After informed consent was obtained the patient was taken to the operating room and placed in the supine position. General anesthesia was induced and her abdomen was prepped and draped in a sterile fashion. An upper midline laparotomy incision was completed sharply. A combination of sharp dissection, retraction, and electrocautery was utilized to transect through the deeper subcutaneous tissue to the level of the midline fascia. The fascia was sharply entered with Metzenbaum scissors. Electrocautery was then utilized to extend the fascial incision to the epigastric region and below the umbilicus. Palpation and inspection confirmed fairly severe inflammatory response throughout the right upper quadrant. The splenic flexure tattoo was also noted. Beginning distally, the lateral white line was carefully taken with a combination of blunt dissection and electrocautery. No obvious injury to surrounding tissue/ureter was noted. Dissection then continued with a combination of electrocautery and the Enseal device around the lateral margin of the splenic flexure/tumor. This was taken to the mid transverse colon. A transection site at the mid transverse colon and along the distal sigmoid colon was noted. A linear stapling device was utilized to transect the colon at these 2 sites. The intervening mesentery was taken with a combination of the Enseal device and clamp/cut/tie method. The specimen was marked for distal margin and passed off for pathologic evaluation. An end-to-end hand-sewn anastomosis was then completed with a combination of 3-0 Nurolon serosal interrupted sutures and a running Vicryl mucosal closure. The mesenteric defect was reapproximated utilizing running Vicryl suture. The anastomosis was surrounded by remaining omentum. Fascia was then reapproximated with running #2 Novafil. Skin was closed with a combination of 4-0 nylon and aleksandra. Dressings were applied and the patient was transferred to recovery in stable condition. Condition: stable Disposition: PACU Specimens:: Left colon Complications:: No immediate Colon Resection Operation performed with curative intent: Yes Tumor location: Splenic flexure Extent of colon and vascular resection: Left hemicolectomy
--- NOTE | 2024-10-04 07:10 | P.PNANES_ITS ---
[facility] Disclaimer: The information contained in this section may have been updated after the patient was seen, as this information can be updated by other users. Medical History Other chest pain Pre-operative cardiovascular examination Chest pain Abnormal ECG SOB (shortness of breath) Decreased libido Menopausal syndrome Cervical pain (neck) Left hip pain Radiculopathy affecting upper extremity Memory loss of unknown cause Recurrent major depression resistant to treatment Arthritis Surgical History History of cardiac cath H/O removal of cyst back of left leg History of partial hysterectomy 2011 History of ankle surgery -left ankle History of tubal ligation Family History Family/Other Hypertension Lupus Coronary artery disease Social History Smoking Status: Never smoker second hand exposure: No alcohol intake: never counseling given: No substance use type: denies use counseling given: No current occupational status: unemployed Travel in the last 8 weeks?: None adopted: No caregiver/support person: Yes foster care: No household members: spouse and family housing: house lives independently: No marital status: number of children: 2 number of grandchildren: 3 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 Hx Recent Travel: No caffeine: Yes physical activity: none working smoke detector in home: Yes fire extinguisher in home: Yes carbon monox detector in home: No firearms in home: Yes firearms unloaded and locked: Yes do you feel safe at home: Yes victim of physical abuse: No victim of emotional abuse: No victim of sexual abuse: No would you like helpful sources: No Have you lived/traveled outside US in past 30 days?: No Contact w/someone who lives/traveled outside US past 30 days?: No Exposure to someone with infectious disease in past 14 days?: No Do you have a fever (greater than 100.4 F or 38 C)?: No Have you tested positive for COVID-19?: No Exposed to someone with COVID-19 in past 14 days?: No Do you have a sore throat?: No Do you have a cough?: No Do you have any weakness?: No Do you have any diarrhea?: No Are you experiencing any unusual bleeding?: No Do you have any muscle aches/pain?: No Do you have any abdominal pain?: No Are you experiencing loss of taste or smell?: No [facility] Anesthesia Checklist Patient Identification Patient Identification: Arm Band and Family Structural Data Admitted From: Home Planned Operative Procedure/s: Left Colectomy Consent for Planned Operative Procedure(s) Verified: Yes Verified Documents: Surgical Consent and History and Physical NPO Status Verified Time NPO: 00:00 Additional verifications Patient : No Anesthesia Reactions: No Hx Blood Transfusions: No Blood Transfusion Reaction: No Cephalosporin Allergy: No Previous Colonoscopy: Yes Airway Assessment Mallampati Score:: Class II C-Spine Mobility Assessed: Yes TMJ Mobility Assessed: Yes Dentition: Good Dentition Neurological Assessment Level of Consciousness: Awake, Alert, Appropriate and Follows Commands Hx Seizures: No Numbness or tingling in extremities: No Anesthesia Plan Anesthesia Risk discussed: Yes ASA Class: II Anesthesia Type: General
[2024-10-04] MEDS: METRONIDAZ/SOD CHL 500 MG/100 ML PIGGYBACK 200 MG IV (07:59)
--- NOTE | 2024-10-04 08:13 | HMH.PHAINT1 ---
Pharmacy Intervention Comments: MEDICATION RECONCILIATION COMPLETED ON PATIENT USING EXTERNAL FILL HISTORY FROM PHARMACY AND LIST FROM PCP/CARDIOLOGY. -JOHNATHAN STOUT, TYD
--- NOTE | 2024-10-04 11:50 | EXP.ANES.I ---
[facility] Anesthesia Record Part I Anesthesia Record I Intake, IV Amount: 2,300 Hydration: Adequate Estimated blood loss (mL): 250 Urine output (mL): 210 Blood Products used (#): none Blood Pressure: 104/59 SaO2: 93 Pulse Rate: 105 Airway Patency: Patent Respiratory Rate: 14 Temperature: 98.2 F Patient is:: Drowsy and Stable Stable to PACU at:: 11:45
[2024-10-04] MEDS: MORPHINE 2MG/ML SYRINGE 2 MG IV (12:08)
[2024-10-04] MEDS: MEPERIDINE 50MG/ML 1ML SYRINGE 50 MG ×2 (12:08→12:13)
--- OUTSIDE RECORDS SUMMARY | 2024-10-04 12:47 | XMS_ITS | Clinical Summary ---
Author Organization Healthcare Address [address] [place] [address] Care Team Providers Care Change Management Analyst Name Role Phone Unavailable Primary Care Provider [...]
[2024-10-04] MEDS: MORPHINE 2MG/ML SYRINGE 1 MG IV ×3 (13:53→21:29)
[2024-10-04 13:55] LABS: Microscopic, Urine URINE MICROSCOPIC (MICROSCOPIC)
[2024-10-04 13:57] LABS: Color,Urine YELLOW (Yellow); Glucose,Urine (UA) Negative (Negative); Ketones,Urine Negative (Negative); Leukocyte Esterase,Urine Negative (Negative); PH,Urine 6.0 (5.0-8.5); Protein,Urine TRACE (Negative); Specific Gravity, Urine >= 1.030 (1.005-1.030); Urobilinogen,Urine 0.2 EU/dl (0.2)
[2024-10-04 14:05] LABS: Bilirubin,Urine 1+ (Negative)
[2024-10-04 14:09] LABS: Bacteria,Urine Trace /lpf; Hyaline Casts,Urine OCC #/lpf (0); Mucus,Urine 1+ /lpf; Squamous Epithelial Cell,Urine Occasional #/hpf (0-5); WBC,Urine Occasional #/hpf (0-3)
[2024-10-04] MEDS: PIPERACILLIN/TAZO 4.5 GM in 0.9 % SODIUM CHLORIDE 100 ML IV ×2 (14:29→18:13)
--- NOTE | 2024-10-04 16:41 | EXP.ANES.II ---
[facility] Anesthesia Record Part II Anesthesia Record Part II Discharge Time: 12:15 Destination: Medical Surgical Department PACU nurse assessment reviewed?: Yes Patient Condition:: Good Anesthesia Complications:: None Swallowing reflex intact?: Yes Airway Patency: Patent Cyanosis?: No Blood Pressure: 124/55 SaO2: 92 Respiratory Rate: 20 Pulse Rate: 106 Temperature: 98.5 F Mental Status: Alert & Oriented Pain level:: 4 Nausea and/or vomitting:: None Intake, IV Amount: 0 Hydration: Adequate
--- NOTE | 2024-10-04 17:10 | PC.NURSE ---
Pt has c/o discomfort to abdomen and back since arrival to floor. Morphine administered. DSG to abdomen is C/D/I . ABdominal binder is in place. She is currently on 5L NC. Pt educated on turning and repositioning. is at bedside. Call light within reach.
[2024-10-04] MEDS: LACTATED RINGERS 1000ML 1,000 ML 125 ML IV ×2 (18:13→22:17)
[2024-10-04] MEDS: PANTOPRAZOLE 40MG VIAL 40 MG IV (20:47)
[2024-10-04] MEDS: SODIUM CHLORIDE 0.9% 10ML VIAL 10 ML IV (20:47)
[2024-10-05] VITALS (13 sets, daily range): BP systolic 117–160; BP diastolic 63–87; PULSE 76–110; RESP 18–24; TEMP 36.4–37.6; O2SAT 90–96; BMI 44.1
[2024-10-05] MEDS: PIPERACILLIN/TAZO 4.5 GM in 0.9 % SODIUM CHLORIDE 100 ML IV ×5 (00:04→23:56)
[2024-10-05] MEDS: MORPHINE 2MG/ML SYRINGE 1 MG IV ×5 (02:38→14:09)
[2024-10-05 06:16] LABS: Hematocrit 38.4 % (37.0-47.0); Hemoglobin 12.3 g/dL (12.2-16.2); Immature Granulocytes % 0.5 %; Mean Corpuscular HGB Conc 32.0 g/dL (31.8-35.4); Mean Corpuscular Hemoglobin 29.6 pg (27.0-31.2); Mean Corpuscular Volume 92.5 fl (81-99); Nucleated Red Blood Cells % 0 %; Platelet Count 230 K/mm3 (142-424); Red Blood Count 4.15 M/mm3 (4.20-5.40); Red Cell Distribution Width-SD 48.2 fL; White Blood Count 13.2 K/mm3 (4.8-10.8)
[2024-10-05 06:38] LABS: Anion Gap 8.2 mEq/L (5-15); Blood Urea Nitrogen 10 mg/dl (7-17); Calcium 9.5 mg/dl (8.4-10.2); Carbon Dioxide 28 mmol/L (22.0-30.0); Chloride 106 mmol/L (98-107); Creatinine Clearance Estimated 71 mL/min (50-200); Creatinine,Serum 0.80 mg/dl (0.52-1.04); Estimated Glomerular Filt Rate 73 ml/min (>60); GFR (African American) 89 ML/MIN (>60); Glucose 132 mg/dl (74-100); Potassium 4.2 mmoL/L (3.5-5.1); Sodium 138 mmol/L (136-145)
[2024-10-05] MEDS: LACTATED RINGERS 1000ML 1,000 ML 125 ML IV (06:38)
--- NOTE | 2024-10-05 07:07 | P.PN_ITS ---
Subjective Narrative: She states that she is burning up and that her back is hurting . Exam Data for Last 24 hours Vital signs and Labs for Last 24 Hours: Temp Pulse Resp BP Pulse Ox O2 Del Method O2 Flow Rate 98.7 F 85 21 135/63 92 L Nasal Cannula 4 10/05/24 04:00 10/05/24 06:00 10/05/24 06:00 10/05/24 06:00 10/05/24 06:00 10/05/24 06:00 10/05/24 06:00 Laboratory Results - last 24 hr 10/04/24 06:40: Blood Type A Positive, Antibody Screen Negative 10/04/24 07:48: Urine Color Yellow, Urine Appearance Clear, Urine pH 6.0, Ur Sp ecific [place] >= 1.030, Urine Protein Trace, Urine Glucose (UA) Negative, Urine Ketones Negative, Urine Blood Negative, Urine Nitrate Negative, Urine Bilirubin 1+ A, Urine Urobilinogen 0.2, Ur Leukocyte Esterase Negative, Urine RBC None, Urine WBC Occasional, Ur Squamous Epith Cells Occasional, Urine Bacteria Trace, Hyaline Casts Occ, Urine Mucus 1+ 10/05/24 05:50: WBC 13.2 H, RBC 4.15 L, Hgb 12.3, Hct 38.4, MCV 92.5, MCH 29.6, MCHC 32.0, RDW 14.3, Plt Count 230, MPV 9.7, Neut % (Auto) 83.2 H, Lymph % (Auto) 7.8 L, Murray % (Auto) 8.3, Eos % (Auto) 0.0 L, Baso % (Auto) 0.2, Neut # (Auto) 11.0 H, Lymph # (Auto) 1.0, Murray # (Auto) 1.1 H, Eos # (Auto) 0.0, Baso # (Auto) 0.0, Sodium 138, Potassium 4.2, Chloride 106, Carbon Dioxide 28, Anion Gap 8.2, BUN 10, Creatinine 0.80, Estimated Creat Clear 71, Estimated GFR 73, Est GFR ( Amer) 89, Glucose 132 H, Calcium 9.5 I & O for Last 24 hours: Intake & Output 10/02/24 10/03/24 10/04/24 10/05/24 11:59 11:59 11:59 11:59 Intake Total 2300 / 2300 1560 / 1560 Output Total 875 / 875 Balance 2300 / 2300 685 / 685 Weight 270 lb 274 lb 12.8 oz Constitutional Constitutional: no acute distress *Routine Respiratory Exam Respiratory: Absent respiratory distress *Routine Cardiovascular Exam Cardiovascular: Absent tachycardia *Routine Abdominal Exam Comments: Dressings in place Progress Note: A&P Assessment and plan (1) Cancer of descending colon: Status: Acute Assessment and plan: Stable postoperative day 1 status post left hemicolectomy Remove Owen catheter Ambulate (2) (HFpEF) heart failure with preserved ejection fraction: Status: Acute Assessment and plan: Continue home medications (3) Bipolar II disorder, moderate, depressed, with anxious distress: Status: Acute Assessment and plan: Home medications (4) HLD (hyperlipidemia): Status: Acute (5) Elevated BP without diagnosis of hypertension: Status: Acute
--- NOTE | 2024-10-05 08:01 | EXP.HP ---
History of Present Illness *Admission Date: 10/05/24 *Reason for visit:: dyspnea, abdominal pain, s/p colon resection. *History of present illness: Ms. Núñez is a 59-year-old female with morbid obesity, HFpEF, mood disorder, who presented with elective partial colectomy due to recently diagnosed adenocarcinoma. Underwent partial colectomy with end to end anastomosis on 10/04. Procedure complicated by inflammation and patient's body habitus. Successful anastomosis achieved. Admitted to ICU after procedure for further monitoring. Discussed case with surgery this morning, they request to transfer patient to our service for medical management and they will assist with surgical follow-up for resection. Of note, she had a myocardial perfusion scan on September 21 and left heart cath on September 24. Did not require any stents at that time. In regard to her GI history, she had a colonoscopy on August 09 that showed apple core circumferential mass at 50 cm. Pathology positive for invasive moderately differentiated adenocarcinoma. CEA of 1.8. This morning on rounds she complains of abdominal pain and feels short of breath. Currently on 4 L. Was on room air prior to surgery. Denies chest pain, nausea or vomiting. Feels she has gas to pass but cannot pass flatus yet. Pain with movement and ambulation. Owen removed this morning. Afebrile. Hemodynamically stable. at bedside. [facility] Disclaimer: The information contained in this section may have been updated after the patient was seen, as this information can be updated by other users. Medical History Other chest pain Pre-operative cardiovascular examination Chest pain Abnormal ECG SOB (shortness of breath) Decreased libido Menopausal syndrome Cervical pain (neck) Left hip pain Radiculopathy affecting upper extremity Memory loss of unknown cause Recurrent major depression resistant to treatment Arthritis Surgical History History of cardiac cath H/O removal of cyst History of partial hysterectomy History of ankle surgery History of tubal ligation Family History Family/Other Hypertension Lupus Coronary artery disease Social History Smoking Status: Never smoker second hand exposure: No alcohol intake: never counseling given: No substance use type: denies use counseling given: No current occupational status: unemployed Travel in the last 8 weeks?: None adopted: No caregiver/support person: Yes foster care: No household members: spouse and family housing: house lives independently: No marital status: number of children: 2 number of grandchildren: 3 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 Hx Recent Travel: No caffeine: Yes physical activity: none working smoke detector in home: Yes fire extinguisher in home: Yes carbon monox detector in home: No firearms in home: Yes firearms unloaded and locked: Yes do you feel safe at home: Yes victim of physical abuse: No victim of emotional abuse: No victim of sexual abuse: No would you like helpful sources: No Have you lived/traveled outside [place] in past 30 days?: No Contact w/someone who lives/traveled outside US past 30 days?: No Exposure to someone with infectious disease in past 14 days?: No Do you have a fever (greater than 100.4 F or 38 C)?: No Have you tested positive for COVID-19?: No Exposed to someone with COVID-19 in past 14 days?: No Do you have a sore throat?: No Do you have a cough?: No Do you have any weakness?: No Do you have any diarrhea?: No Are you experiencing any unusual bleeding?: No Do you have any muscle aches/pain?: No Do you have any abdominal pain?: No Are you experiencing loss of taste or smell?: No Other Medical History Have you received the Flu Vaccine for this season: No Have you received the Pneumonia Vaccine: No Review of Systems Review of Systems Review of systems (narrative): 14 point review of systems performed, pertinent positives and negatives as per HPI Meds Home Medications and Allergies Home Medications ?Medication ?Instructions ?Recorded ?Confirmed ?Type coQ10 (ubiquinol) 100 mg capsule 100 mg PO BID #180 caps 08/01/23 10/04/24 Rx (Qunol Usman CoQ10) celecoxib 100 mg capsule (Celebrex) 100 mg PO BID #60 caps 04/22/24 10/04/24 Rx cholecalciferol (vitamin D3) 50 100 mcg (2 x 50 mcg (2,000 unit)) 04/24/24 10/04/24 Rx mcg (2,000 unit) capsule PO DAILY #180 caps estradiol 0.1 mg/24 hr weekly 1 patch transdermal WEEKLY #12 ea 07/30/24 10/04/24 Rx transdermal patch lumateperone 42 mg capsule 42 mg PO DAILY #30 caps 09/15/24 10/04/24 Rx (Caplyta) paroxetine HCl 40 mg tablet 40 mg PO DAILY #30 tabs 09/15/24 10/04/24 Rx temazepam 15 mg capsule 15 mg PO HS #30 caps 09/15/24 10/04/24 Rx bumetanide 1 mg tablet 1 mg PO DAILY #30 tabs 09/24/24 10/04/24 Rx dapagliflozin propanediol 10 mg 10 mg PO DAILY #30 tabs 09/29/24 10/04/24 Rx tablet (Farxiga) spironolactone 25 mg tablet 25 mg PO DAILY #30 tabs 09/30/24 10/04/24 Rx (Aldactone) New Prescriptions to Start Prescriptions: Allergies Allergy/AdvReac Type Severity Reaction Status Date / Time codeine Allergy Mild Vomiting Verified 10/04/24 06:47 Exam Data for Last 24 hours Vital signs and Labs for Last 24 Hours: Temp Pulse Resp BP Pulse Ox O2 Del Method O2 Flow Rate 98.7 F 85 21 135/63 92 L Nasal Cannula 4 10/05/24 04:00 10/05/24 06:00 10/05/24 06:00 10/05/24 06:00 10/05/24 06:00 10/05/24 06:00 10/05/24 06:00 Laboratory Results - last 24 hr 10/04/24 06:40: Blood Type A Positive, Antibody Screen Negative 10/04/24 07:48: Urine Color Yellow, Urine Appearance Clear, Urine pH 6.0, Ur Specific [place] >= 1.030, Urine Protein Trace, Urine Glucose (UA) Negative, Urine Ketones Negative, Urine Blood Negative, Urine Nitrate Negative, Urine Bilirubin 1+ A, Urine Urobilinogen 0.2, Ur Leukocyte Esterase Negative, Urine RBC None, Urine WBC Occasional, Ur Squamous Epith Cells Occasional, Urine Bacteria Trace, Hyaline Casts Occ, Urine Mucus 1+ 10/05/24 05:50: WBC 13.2 H, RBC 4.15 L, Hgb 12.3, Hct 38.4, MCV 92.5, MCH 29.6, MCHC 32.0, RDW 14.3, Plt Count 230, MPV 9.7, Neut % (Auto) 83.2 H, Lymph % (Auto) 7.8 L, [place] % (Auto) 8.3, Eos % (Auto) 0.0 L, Baso % (Auto) 0.2, Neut # (Auto) 11.0 H, Lymph # (Auto) 1.0, [place] # (Auto) 1.1 H, Eos # (Auto) 0.0, Baso # (Auto) 0.0, Sodium 138, Potassium 4.2, Chloride 106, Carbon Dioxide 28, Anion Gap 8.2, BUN 10, Creatinine 0.80, Estimated Creat Clear 71, Estimated GFR 73, Est GFR ( Amer) 89, Glucose 132 H, Calcium 9.5 I & O for Last 24 hours: Intake & Output 10/02/24 10/03/24 10/04/24 10/05/24 23:59 23:59 23:59 23:59 Intake Total 2760 / 3860 1100 / 1100 Output Total 600 / 600 275 / 275 Balance 2160 / 3260 825 / 825 Weight 119.862 kg 124.647 kg Constitutional Constitutional: mild distress, morbidly obese and cooperative *Routine HEENT Exam Head: Present normocephalic Eye: Present EOMI ENT: Present mucous membranes moist *Routine Neck Exam Neck: Present full ROM *Routine Respiratory Exam Respiratory: Present CTA bilaterally and distant breath sounds; Absent accessory muscle use, respiratory distress, rhonchi, wheezes or crackles *Routine Cardiovascular Exam Cardiovascular: Present RRR; Absent tachycardia *Routine Abdominal Exam Abdominal: Present soft and tenderness; Absent distended or rebound Comments: Binder in place. Diffusely tender, worse in right lower quadrant *Routine Rectal Exam Rectal:: deferred *Routine Genitalia Exam Genitalia:: deferred *Routine Extremities Exam Extremities: Present edema (Trace in ankles) and full ROM; Absent cyanosis or clubbing *Routine Skin Exam Skin: Present intact; Absent erythema *Routine Neurological Exam Neurological: Present alert, oriented X3 and moving all extremities; Absent altered mental status Assessment and Plan *Assessment and plan (1) Cancer of descending colon: Status: Acute Category: Medical Code(s): C18.6 - Malignant neoplasm of descending colon (2) (HFpEF) heart failure with preserved ejection fraction: Status: Acute Qualifiers: Heart failure chronicity: chronic Qualified Code(s): I50.32 - Chronic diastolic (congestive) heart failure Category: Medical Code(s): I50.30 - Unspecified diastolic (congestive) heart failure (3) Bipolar II disorder, moderate, depressed, with anxious distress: Status: Acute Category: Medical Code(s): F31.81 - Bipolar II disorder (4) HLD (hyperlipidemia): Status: Acute Qualifiers: Hyperlipidemia type: unspecified Qualified Code(s): E78.5 - Hyperlipidemia, unspecified Category: Medical Code(s): E78.5 - Hyperlipidemia, unspecified (5) Elevated BP without diagnosis of hypertension: Status: Acute Category: Medical Code(s): R03.0 - Elevated blood-pressure reading, without diagnosis of hypertension (6) Morbid obesity with BMI of 40.0-44.9, adult: Status: Chronic Category: Medical Code(s): E66.01 - Morbid (severe) obesity due to excess calories; Z68.41 - Body mass index [BMI] 40.0-44.9, adult Plan 59-year-old female with history of HFpEF, morbid obesity, bipolar 2. Discussed case with surgery, she underwent partial colectomy 10/04. End-to-end anastomosis achieved. Requesting our services to take over medical management of patient. Patient currently on 4 L. Will discontinue IV fluids to decrease risk for volume overload in the setting of her HFpEF. Has normal kidney function at this time. Does not appear dry. Continues to require inpatient care. Downgrade to [facility]. Problems addressed as follows: Chronic HFpEF - Does not appear to be in acute exacerbation at this time. Will continue Bumex 1 mg transition to IV daily - Continue dapagliflozin 10 mg daily - Continue spironolactone 25 mg daily Supplemental oxygen postsurgery. Wean oxygen as tolerated for goal sats greater 90%. Will obtain a chest x-ray. Patient does have white count of 13, in the postop setting suspect the marginalization versus infection. Hemoglobin stable at 12. Platelets 230. - On prophylactic antibiotics post abdominal surgery. Will not broaden at this time, low suspicion for pneumonia. Continue Zosyn 4.5 g every 6 hours scheduled - Monitor for improvement with diuresis - Kidney function stable with BUN 10, creatinine 0.8. Electrolytes normal with sodium 138, potassium 4.2, bicarb 28. Glucose 132 Morbid obesity complicates all aspects of her care Sleep disorder: Continue temazepam 15 mg nightly Bipolar 2: Continue home regimen of Paxil 40 mg daily, lumateperone 42 mg daily. Appears stable Partial colectomy 10/04/2024. -Defer management to surgery. Advance diet per surgery recommendations - Morphine 2 mg IV every 2 hours for moderate to severe pain. Monitor for toxicity. Repeat BMP and CBC ordered for the morning. Continue bowel regimen with docusate 100 mg daily Continue pantoprazole 40 mg nightly IV for GERD/GI prophylaxis Full code N.p.o. except ice chips Lovenox 40 mg subcu twice daily
[2024-10-05] MEDS: BUMETANIDE 1 MG TABLET PO (08:36)
[2024-10-05] MEDS: SPIRONOLACTONE 25MG TABLET 25 MG PO (08:38)
--- NOTE | 2024-10-05 09:59 | PC.NURSE ---
All patient care and documentation provided by Ivonne KEITH was completed under my direct supervision. Nicki Gomez RN
--- NOTE | 2024-10-05 11:26 | HMH.PTEV ---
Physical Therapy Evaluation Rehab PT IP Evaluation Start: 10/04/24 06:54 Freq: ONCE Status: Active Protocol: Document 10/05/24 09:35 ALICE (Rec: 10/05/24 11:26 ALICE [id number]) Subjective/History History History 59-year-old female who presents for partial colectomy for recently-diagnosed adenocarcinoma. She has undergone cardiology evaluation including myocardial perfusion scan on September 21, 2024 and left heart catheterization on September 24, 2024. She has been diagnosed with heart failure with preserved ejection fraction. She is considered an elevated operative risk but the risk is non-modifiable and unlikely to be further mitigated by additional preoperative cardiac workup . Pt reports she lives with , 2-3 TRACY the home, and she is generally independent with all mobility without AD at baseline. Subjective Subjective Currently presents supine, expected post-op pain, agrees to mobility assessment. [facility] How much help from another person do you currently need... Turning from your A lot back to your side while in a flat bed without using bedrails? Moving from lying on A lot back to sitting on the side of a flat bed without using bedrails? Moving to and from a None bed to a chair ( including a wheelchair)? Standing up from a None chair using your arms? (e.g., wheelchair, bedside chair) Walking in hospital A little room? Climbing 3-5 steps A little with a railing? Mobility Score 18 Mobility Level [facility] Mobility 6 Walk 10 steps or more Mobility Calculator Rehab PT IP Eval Objective Appearance Patient Behavior Appropriate Patient Orientation Person,Place,Time Difficulty following none instructions Speech Pattern Clear Ambulation Patient Able to Yes Ambulate Ambulation Observation IP General Gait Shuffling Step Pattern Observation Ambulation Distance 5 (feet) Ambulation Assistive None Device Ambulation Ability Contact Guard/Hand Hold Balance Ability to Arise Able, uses arms to help Sitting Balance Leans or slides in chair Standing Balance Steady, wide stance Dynamic Sitting Fair Balance Ability Dynamic Standing Good Balance Ability Transfers Bed Transfer Ability Moderate x 1 (50% assist) Chair Transfer Contact Guard/Hand Hold Ability Sit to Stand Bed Contact Guard/Hand Hold Transfer Ability Sit to Stand Chair Contact Guard/Hand Hold Transfer Ability Rehab PT IP prob,goals,plan Problems Date of Evaluation: 10/05/24 PT IP Problems Bed Mobility,Transfers,Gait Rehab Potential Rehab Potential Good Plan PT Intervention Plan Bed Mobility,Transfers,Gait,Therapeutic Exercise PT Plan Frequency Daily Duration LOS Discharge Goals Bed Transfer Ability Minimal x 1 (25% assist) Sit to Stand Chair Supervision/Stand by Transfer Ability Ambulation Assistive None Device Ambulation Distance 30 (feet) Discharge Plan PT Discharge Plan Pt is currently most appropriate to return home once medically stable for d/c. Recommend home health therapy as needed after d/c. Skilled acute therapy services are indicated to improve transfer ability, increase ambulation, and increase general strength in order to return pt to [facility]. Eval Complexity Eval Charge Codes 47016 - High Complexity PHYSICIAN CERTIFICATION: I certify the specified therapy services for Shelia Núñez are required, authorized, and reviewed every 30 days.
[2024-10-05] MEDS: BUMETANIDE 1MG/4ML VIAL 1 MG IV (13:39)
--- NOTE | 2024-10-05 15:00 | PC.NURSE ---
arrived by bed to floor (room 202) from ICU
--- NOTE | 2024-10-05 16:30 | XR_ITS ---
PROCEDURE INFORMATION: Exam: XR Chest Exam date and time: 10/05/2024 6:57 PM Age: 59 years old Clinical indication: Other: New o2 requirement TECHNIQUE: Imaging protocol: Radiologic exam of the chest. Views: 1 view. Total images: 1 COMPARISON: CT CHEST W CON 09/01/2024 2:24 PM FINDINGS: Tubes, catheters and devices: EKG leads are present. Lungs: Very poor lung expansion with crowding. Bibasilar atelectasis. No airspace consolidation. No overt vascular congestion. Pleural spaces: Unremarkable. No pleural effusion. No pneumothorax. Heart/Mediastinum: Unremarkable. No cardiomegaly. No mediastinal widening or hilar enlargement. Bones/joints: Moderate degenerative changes thoracic spine. Limited chest wall structures. Other findings: Lordotic position. IMPRESSION: Very poor lung expansion with crowding. Bibasilar atelectasis.
--- NOTE | 2024-10-05 17:44 | PC.NURSE ---
Pt transferred from step-down to med-surg at 1500. Vital signs stable tolerating 4L NC at this time. Pt w/ SOB on exertion. A&Ox4. Pt voided via BSC 600mL. Pt encouraged to ambulate and get up to the BSC as tolerated. Midline incision with abdominal binder c/d/i. Pt resting comfortably supine in bed with no further needs voiced at this time. Family at bedside. Call light within reach.
[2024-10-05] MEDS: MORPHINE 2MG/ML SYRINGE 2 MG IV ×2 (18:12→21:10)
[2024-10-05] MEDS: SODIUM CHLORIDE 0.9% 10ML VIAL 10 ML IV (20:45)
[2024-10-05] MEDS: CAPLYTA 42 MG 1 EACH PO (20:45)
[2024-10-05] MEDS: PANTOPRAZOLE 40MG VIAL 40 MG IV (20:45)
[2024-10-05] MEDS: TEMAZEPAM 15MG CAPSULE 15 MG PO (20:45)
[2024-10-05] MEDS: PARoxetine 20MG TABLET 40 MG PO (20:45)
[2024-10-06] VITALS (8 sets, daily range): BP systolic 121–159; BP diastolic 65–98; PULSE 76–120; RESP 17–20; TEMP 36.4–37.1; O2SAT 90–97; BMI 44.3
--- NOTE | 2024-10-06 04:35 | PC.NURSE ---
Patient is alert and oriented x4. She was observed to be resting in bed with eyes closed, respirations even and unlabored on 4 L of oxygen via nasal cannula, and no apparent distress throughout the majority of the night. has remained at bedside. Patient refused to have abdominal binder moved to assess her midline incision due to having severe abdominal pain; however, abdominal binder has remained clean, dry, and intact upon inspections. An extra pillow was provided to splint her abdomen for comfort. Morphine administered per MAR for abdominal pain relief. Other scheduled medications were administered per MAR as appropriately. Abdomen is soft, puffy, and tender with palpation. Bowel sounds active in all quadrants, but patient denies passing flatulence. No bowel movement thus far this shift. Patient does report belching, however. Denies nausea. Patient gets up with x1 to x2 assistance to pivot to the bedside commode for elimination needs. Has been voiding since post-Owen catheter removal yesterday. NPO diet remains in place. Mild perspiration noted to forehead at times; oscillating fan in room for cooling down. Afebrile. Normal sinus/sinus tachycardia rhythm on telemetry. At this time, the patient is resting in bed without any further complaints. No new needs thus far. Call light within reach.
[2024-10-06] MEDS: MORPHINE 2MG/ML SYRINGE 2 MG IV ×4 (06:00→22:19)
[2024-10-06] MEDS: PIPERACILLIN/TAZO 4.5 GM in 0.9 % SODIUM CHLORIDE 100 ML IV ×4 (06:00→23:35)
[2024-10-06 08:10] LABS: Hematocrit 37.2 % (37.0-47.0); Hemoglobin 12.2 g/dL (12.2-16.2); Immature Granulocytes % 0.5 %; Mean Corpuscular HGB Conc 32.8 g/dL (31.8-35.4); Mean Corpuscular Hemoglobin 29.8 pg (27.0-31.2); Mean Corpuscular Volume 91.0 fl (81-99); Nucleated Red Blood Cells % 0 %; Platelet Count 220 K/mm3 (142-424); Red Blood Count 4.09 M/mm3 (4.20-5.40); Red Cell Distribution Width-SD 47.4 fL; White Blood Count 12.9 K/mm3 (4.8-10.8)
--- NOTE | 2024-10-06 08:18 | EXP.SURG.PN ---
Subjective Patient reports: no flatus Narrative: The patient states that she is very hot . She states that she stays hot all the time . She is also very thirsty . Exam Data for Last 24 hours Vital signs and Labs for Last 24 Hours: Temp Pulse Resp BP Pulse Ox O2 Del Method O2 Flow Rate 98.1 F 110 H 20 143/77 H 97 Nasal Cannula 4 10/06/24 03:54 10/06/24 04:00 10/06/24 03:54 10/06/24 03:54 10/06/24 03:54 10/06/24 07:00 10/06/24 07:00 Laboratory Results - last 24 hr 10/06/24 08:00: WBC 12.9 H, RBC 4.09 L, Hgb 12.2, Hct 37.2, MCV 91.0, MCH 29.8, MCHC 32.8, RDW 14.3, Plt Count 220, MPV 9.3, Neut % (Auto) 80.3 H, Lymph % (Auto) 11.0, [place] % (Auto) 8.1, Eos % (Auto) 0.0 L, Baso % (Auto) 0.1, Neut # (Auto) 10.3 H, Lymph # (Auto) 1.4, [place] # (Auto) 1.0, Eos # (Auto) 0.0, Baso # (Auto) 0.0 I & O for Last 24 hours: Intake & Output 10/03/24 10/04/24 10/05/24 10/06/24 11:59 11:59 11:59 11:59 Intake Total 2300 / 2300 1803 / 1803 150 / 150 Output Total 1025 / 1025 900 / 900 Balance 2300 / 2300 778 / 778 -750 / -750 Weight 270 lb 274 lb 12.8 oz 276 lb Constitutional Constitutional: no acute distress *Routine Respiratory Exam Respiratory: Absent respiratory distress *Routine Cardiovascular Exam Cardiovascular: Present tachycardia Progress Note: A&P Assessment and plan (1) Cancer of descending colon: Status: Acute Assessment and plan: Stable postoperative day 2 status post left hemicolectomy Overall management as per primary service Limited clear liquid diet as directed by nursing (no tray and no carbonation) Await return of bowel function Continue to increase ambulation (2) (HFpEF) heart failure with preserved ejection fraction: Status: Acute Assessment and plan: Continue home medications (3) Morbid obesity with BMI of 40.0-44.9, adult: Status: Chronic (4) Tachycardia: Status: Acute Assessment and plan: As per primary service (5) Leukocytosis: Status: Acute Assessment and plan: The patient has remained on Zosyn beyond the initial 24-hour postoperative timeframe secondary to minimal intraoperative spillage. Her white blood cell count remains mildly elevated with a mild left shift . Continue Zosyn for now
[2024-10-06 08:21] LABS: Anion Gap 9.5 mEq/L (5-15); Blood Urea Nitrogen 14 mg/dl (7-17); Calcium 9.7 mg/dl (8.4-10.2); Carbon Dioxide 26 mmol/L (22.0-30.0); Chloride 105 mmol/L (98-107); Creatinine Clearance Estimated 57 mL/min (50-200); Creatinine,Serum 1.00 mg/dl (0.52-1.04); Estimated Glomerular Filt Rate 57 ml/min (>60); GFR (African American) 69 ML/MIN (>60); Glucose 135 mg/dl (74-100); Potassium 3.5 mmoL/L (3.5-5.1); Sodium 137 mmol/L (136-145)
[2024-10-06] MEDS: SPIRONOLACTONE 25MG TABLET 25 MG PO (08:42)
[2024-10-06] MEDS: BUMETANIDE 1MG/4ML VIAL 1 MG IV (08:42)
[2024-10-06] MEDS: DAPAGLIFLOZIN PROPANEDIOL 10 MG TABLET PO (08:50)
--- NOTE | 2024-10-06 11:51 | PC.NURSE ---
Attempted to wean pt to 3L NC this morning. Pt saturations dropped to 87-89%. Pt put back on 4L NC.
--- NOTE | 2024-10-06 16:27 | EXP.PN ---
Subjective *Date: 10/06/24 *Time: 16:27 Interval history: Patient seen and evaluated at the bedside, patient denied chest pain shortness of breath, no fevers chills. No new complaints at this time Exam Data for Last 24 hours Vital signs and Labs for Last 24 Hours: Temp Pulse Resp BP Pulse Ox O2 Del Method O2 Flow Rate 98 F 78 18 139/74 97 Nasal Cannula 4 10/06/24 16:00 10/06/24 16:00 10/06/24 16:00 10/06/24 16:00 10/06/24 16:10/06/24 16:00 10/06/24 13:00 Laboratory Results - last 24 hr 10/06/24 08:00: WBC 12.9 H, RBC 4.09 L, Hgb 12.2, Hct 37.2, MCV 91.0, MCH 29.8, MCHC 32.8, RDW 14.3, Plt Count 220, MPV 9.3, Neut % (Auto) 80.3 H, Lymph % (Auto) 11.0, [place] % (Auto) 8.1, Eos % (Auto) 0.0 L, Baso % (Auto) 0.1, Neut # (Auto) 10.3 H, Lymph # (Auto) 1.4, [place] # (Auto) 1.0, Eos # (Auto) 0.0, Baso # (Auto) 0.0, Sodium 137, Potassium 3.5, Chloride 105, Carbon Dioxide 26, Anion Gap 9.5, BUN 14 D, Creatinine 1.00 D, Estimated Creat Clear 57, Estimated GFR 57 L, Est GFR ( Amer) 69 D, Glucose 135 H, Calcium 9.7 I & O for Last 24 hours: Intake & Output 10/03/24 10/04/24 10/05/24 10/06/24 23:59 23:59 23:59 23:59 Intake Total 2760 / 3860 1343 / 1493 150 / 150 Output Total 600 / 600 1325 / 1325 700 / 700 Balance 2160 / 3260 18 / 168 -550 / -550 Weight 119.862 kg 124.647 kg 125.191 kg Constitutional Constitutional: no acute distress *Routine HEENT Exam Head: Present normocephalic Eye: Present EOMI and PERRL ENT: Present mucous membranes moist *Routine Neck Exam Neck: Present supple; Absent lymphadenopathy *Routine Respiratory Exam Respiratory: Present CTA bilaterally *Routine Cardiovascular Exam Cardiovascular: Present RRR *Routine Abdominal Exam Abdominal: Present soft and normoactive bowel sounds; Absent tenderness Comments: covered with dressing *Routine Extremities Exam Extremities: Absent cyanosis, clubbing or edema *Routine Skin Exam Skin: Present warm; Absent rash *Routine Neurological Exam Neurological: Present alert and oriented X3 Assessment and Plan *Assessment and plan (1) Cancer of descending colon: Status: Acute Category: Medical Code(s): C18.6 - Malignant neoplasm of descending colon (2) (HFpEF) heart failure with preserved ejection fraction: Status: Acute Qualifiers: Heart failure chronicity: chronic Qualified Code(s): I50.32 - Chronic diastolic (congestive) heart failure Category: Medical Code(s): I50.30 - Unspecified diastolic (congestive) heart failure (3) Bipolar II disorder, moderate, depressed, with anxious distress: Status: Acute Category: Medical Code(s): F31.81 - Bipolar II disorder (4) HLD (hyperlipidemia): Status: Acute Qualifiers: Hyperlipidemia type: unspecified Qualified Code(s): E78.5 - Hyperlipidemia, unspecified Category: Medical Code(s): E78.5 - Hyperlipidemia, unspecified (5) Elevated BP without diagnosis of hypertension: Status: Acute Category: Medical Code(s): R03.0 - Elevated blood-pressure reading, without diagnosis of hypertension (6) Morbid obesity with BMI of 40.0-44.9, adult: Status: Chronic Category: Medical Code(s): E66.01 - Morbid (severe) obesity due to excess calories; Z68.41 - Body mass index [BMI] 40.0-44.9, adult Plan 59-year-old female with history of HFpEF, morbid obesity, bipolar 2. Discussed case with surgery, she underwent partial colectomy 10/04. s/p surgery advance diet per general surgery recommendations, encourage patient to have more mobility in room. Patient also was informed of continuing IV Zosyn, likely discharge when okay with general surgery Chronic HFpEF - Does not appear to be in acute exacerbation at this time. Will continue Bumex 1 mg transition to IV daily - Continue dapagliflozin 10 mg daily - Continue spironolactone 25 mg daily - On prophylactic antibiotics post abdominal surgery. Will not broaden at this time, low suspicion for pneumonia. Continue Zosyn 4.5 g every 6 hours scheduled - Monitor for improvement with diuresis Morbid obesity complicates all aspects of her care Sleep disorder: Continue temazepam 15 mg nightly Bipolar 2: Continue home regimen of Paxil 40 mg daily, lumateperone 42 mg daily. Appears stable Partial colectomy 10/04/2024. -Defer management to surgery. Advance diet per surgery recommendations - Morphine 2 mg IV every 2 hours for moderate to severe pain. Monitor for toxicity. Repeat BMP and CBC ordered for the morning. Continue bowel regimen with docusate 100 mg daily Continue pantoprazole 40 mg nightly IV for GERD/GI prophylaxis Full code N.p.o. except ice chips Lovenox 40 mg subcu twice daily advance diet per general surgery recommendations, encourage patient to have more mobility in room. Patient also was informed of continuing IV Zosyn, likely discharge when okay with general surgery
--- NOTE | 2024-10-06 19:41 | PC.NURSE ---
Pt is A&Ox4. Vital signs stable tolerating 4L NC. IV abx infused. Pt complains of abdominal pain. Pain medication given per MAY. Midline incisions with aleksandra c/d/i. Pt up to the [facility] [place] with assistance. Pt has not passed gas or had a BM thus far. Pt encouraged to ambulate. Pt ambulated with assistance in the hallway. Pt resting comfortably with no further needs voiced at this time. Call light within reach
[2024-10-06] MEDS: PARoxetine 20MG TABLET 40 MG PO (21:29)
[2024-10-06] MEDS: CAPLYTA 42 MG 1 EACH PO (21:30)
[2024-10-06] MEDS: TEMAZEPAM 15MG CAPSULE 15 MG PO (21:35)
[2024-10-06] MEDS: SODIUM CHLORIDE 0.9% 10ML VIAL 10 ML IV (21:36)
[2024-10-06] MEDS: PANTOPRAZOLE 40MG VIAL 40 MG IV (21:36)
[2024-10-07] VITALS (7 sets, daily range): BP systolic 132–158; BP diastolic 66–92; PULSE 80–90; RESP 16–22; TEMP 36.3–37; O2SAT 92–99; BMI 43.9
[2024-10-07] MEDS: PIPERACILLIN/TAZO 4.5 GM in 0.9 % SODIUM CHLORIDE 100 ML IV (05:50)
[2024-10-07 06:20] LABS: Hematocrit 36.0 % (37.0-47.0); Hemoglobin 11.5 g/dL (12.2-16.2); Immature Granulocytes % 0.8 %; Mean Corpuscular HGB Conc 31.9 g/dL (31.8-35.4); Mean Corpuscular Hemoglobin 28.9 pg (27.0-31.2); Mean Corpuscular Volume 90.5 fl (81-99); Nucleated Red Blood Cells % 0 %; Platelet Count 229 K/mm3 (142-424); Red Blood Count 3.98 M/mm3 (4.20-5.40); Red Cell Distribution Width-SD 46.7 fL; White Blood Count 9.9 K/mm3 (4.8-10.8)
[2024-10-07 06:58] LABS: Anion Gap 9.2 mEq/L (5-15); Blood Urea Nitrogen 15 mg/dl (7-17); Calcium 9.5 mg/dl (8.4-10.2); Carbon Dioxide 26 mmol/L (22.0-30.0); Chloride 104 mmol/L (98-107); Creatinine Clearance Estimated 71 mL/min (50-200); Creatinine,Serum 0.80 mg/dl (0.52-1.04); Estimated Glomerular Filt Rate 73 ml/min (>60); GFR (African American) 89 ML/MIN (>60); Glucose 104 mg/dl (74-100); Potassium 3.2 mmoL/L (3.5-5.1); Sodium 136 mmol/L (136-145)
--- NOTE | 2024-10-07 08:08 | PC.NURSE ---
Pt. is alert and orientated x 4. Pt. is on room air oxygen. Pt. has c/o chronic back pain and some abdominal pain. Pt. has surgical incision to midline abdomen. Darrian in place, clean, dry, intact.Pt. medicated x 2 per MAR for pain. Pt. taking ice chips and a few sips of water, tolerated well. Pt. up with assist x 1-2. Pt.voided and had a stool on the BSC. Pt. slept on and off this shift. Personal items and call xiong in reach. bed in low and locked position. safety measures in place.
[2024-10-07] MEDS: BUMETANIDE 1MG/4ML VIAL 1 MG IV (08:15)
[2024-10-07] MEDS: DAPAGLIFLOZIN PROPANEDIOL 10 MG TABLET PO (08:16)
[2024-10-07] MEDS: SPIRONOLACTONE 25MG TABLET 25 MG PO (08:16)
--- NOTE | 2024-10-07 08:44 | EXP.PHA.PN ---
Subjective *Date: 10/07/24 *Time: 08:44 Medical Exam Vital signs and Labs for Last 24 Hours: Vital Signs Temp Pulse Pulse Resp BP Pulse Ox O2 Del Method 10/07/24 07:56 Room Air 10/07/24 07:56 97.9 F 90 18 140/73 99 Nasal Cannula 10/07/24 06:59 Room Air 10/07/24 03:36 97.4 F L 86 22 142/92 H 98 Nasal Cannula 10/07/24 03:00 Room Air 10/07/24 01:00 Room Air 10/07/24 00:00 80 10/06/24 23:27 97.5 F L 90 19 144/75 H 97 Nasal Cannula 10/06/24 23:00 Room Air 10/06/24 21:00 Room Air 10/06/24 20:00 90 10/06/24 20:00 18 97 Room Air 10/06/24 20:00 98.8 F 110 H 18 159/83 H 96 Nasal Cannula 10/06/24 19:00 Nasal Cannula 10/06/24 17:00 Nasal Cannula 10/06/24 16:00 90 10/06/24 16:00 98 F 78 18 139/74 97 Nasal Cannula 10/06/24 15:00 Nasal Cannula 10/06/24 13:00 Nasal Cannula 10/06/24 12:00 90 10/06/24 12:00 97.8 F 76 19 142/88 H 10/06/24 11:00 Nasal Cannula 10/06/24 09:00 Nasal Cannula O2 Flow Rate 10/07/24 07:56 10/07/24 07:56 4 10/07/24 06:59 10/07/24 03:36 4 10/07/24 03:00 10/07/24 01:00 10/07/24 00:00 10/06/24 23:27 4 10/06/24 23:00 10/06/24 21:00 10/06/24 20:00 10/06/24 20:00 10/06/24 20:00 4 10/06/24 19:00 4 10/06/24 17:00 4 10/06/24 16:00 10/06/24 16:00 10/06/24 15:00 4 10/06/24 13:00 4 10/06/24 12:00 10/06/24 12:00 10/06/24 11:00 4 10/06/24 09:00 4 Intake and Output 10/06/24 10/07/24 10/07/24 23:59 07:59 15:59 Output Total 0 / 700 0 / 0 Balance 0 / -550 0 / 0 Output: Output, Urine Amount 0 / 700 0 / 0 Other: Number of Voids 0 Number of Unmeasured Voids 1 1 Number of Bowel Movements 1 1 Weight 123.859 kg Patient Weight 10/07/24 23:59 Weight 123.859 kg Laboratory Results - last 24 hr 10/07/24 06:03: WBC 9.9, RBC 3.98 L, Hgb 11.5 L, Hct 36.0 L, MCV 90.5, MCH 28.9, MCHC 31.9, RDW 14.2, Plt Count 229, MPV 9.4, Neut % (Auto) 76.2, Lymph % (Auto) 16.1, [place] % (Auto) 6.9, Eos % (Auto) 0.0 L, Baso % (Auto) 0.0 L, Neut # (Auto) 7.6, Lymph # (Auto) 1.6, [place] # (Auto) 0.7, Eos # (Auto) 0.0, Baso # (Auto) 0.0, Sodium 136, Potassium 3.2 L, Chloride 104, Carbon Dioxide 26, Anion Gap 9.2, BUN 15, Creatinine 0.80, Estimated Creat Clear 71, Estimated GFR 73, Est GFR ( Amer) 89 D, Glucose 104 H D, Calcium 9.5 I & O for Labs for Last 24 Hours: Intake & Output 10/04/24 10/05/24 10/06/24 10/07/24 23:59 23:59 23:59 23:59 Intake Total 2760 / 3860 1343 / 1493 150 / 150 Output Total 600 / 600 1325 / 1325 700 / 700 0 / 0 Balance 2160 / 3260 18 / 168 -550 / -550 0 / 0 Weight 119.862 kg 124.647 kg 125.191 kg 123.859 kg The patient's infection will respond to the chosen ABx?: Yes (NO SPECIMAN, POST-OP ABX, AFEBRILE OVER 24 HR.) Is the patient receiving the right drug, dose, and route?: Yes Could a more targeted ABx be ordered?: No How long ABx needed (days)?: 4
--- NOTE | 2024-10-07 09:07 | EXP.SURG.PN ---
Subjective Patient reports: no new complaints, feels better, flatus and bowel movement Exam Data for Last 24 hours Vital signs and Labs for Last 24 Hours: Temp Pulse Resp BP Pulse Ox O2 Del Method O2 Flow Rate 97.9 F 90 18 140/73 99 Room Air 4 10/07/24 07:56 10/07/24 07:56 10/07/24 07:56 10/07/24 07:56 10/07/24 07:56 10/07/24 07:56 10/07/24 07:56 Laboratory Results - last 24 hr 10/07/24 06:03: WBC 9.9, RBC 3.98 L, Hgb 11.5 L, Hct 36.0 L, MCV 90.5, MCH 28.9, MCHC 31.9, RDW 14.2, Plt Count 229, MPV 9.4, Neut % (Auto) 76.2, Lymph % (Auto) 16.1, [place] % (Auto) 6.9, Eos % (Auto) 0.0 L, Baso % (Auto) 0.0 L, Neut # (Auto) 7.6, Lymph # (Auto) 1.6, [place] # (Auto) 0.7, Eos # (Auto) 0.0, Baso # (Auto) 0.0, Sodium 136, Potassium 3.2 L, Chloride 104, Carbon Dioxide 26, Anion Gap 9.2, BUN 15, Creatinine 0.80, Estimated Creat Clear 71, Estimated GFR 73, Est GFR ( Amer) 89 D, Glucose 104 H D, Calcium 9.5 I & O for Last 24 hours: Intake & Output 10/04/24 10/05/24 10/06/24 10/07/24 11:59 11:59 11:59 11:59 Intake Total 2300 / 2300 1803 / 1803 150 / 150 Output Total 1025 / 1025 1300 / 1600 300 / 300 Balance 2300 / 2300 778 / 778 -1150 / -1450 -300 / -300 Weight 270 lb 274 lb 12.8 oz 276 lb 273 lb 1 oz Constitutional Constitutional: no acute distress *Routine Respiratory Exam Respiratory: Absent respiratory distress *Routine Cardiovascular Exam Cardiovascular: Present tachycardia *Routine Abdominal Exam Abdominal: Present soft Comments: Incision clean, dry, and intact. No erythema. Progress Note: A&P Assessment and plan (1) Cancer of descending colon: Status: Acute Assessment and plan: Overall, doing well postoperative day 3 status post left hemicolectomy Overall management as per primary service Clear liquid diet followed by full liquid diet ordered Continue to increase ambulation (2) Leukocytosis: Status: Resolved Assessment and plan: Resolved. Discontinue Zosyn
--- NOTE | 2024-10-07 11:22 | EXP.PN ---
Subjective *Date: 10/07/24 *Time: 11:22 Interval history: Patient seen and evaluated at the bedside, patient denied chest pain shortness of breath, no fevers chills. No new complaints at this time Passing gas today and had BM Exam Data for Last 24 hours Vital signs and Labs for Last 24 Hours: Temp Pulse Resp BP Pulse Ox O2 Del Method O2 Flow Rate 97.9 F 90 18 140/73 99 Room Air 4 10/07/24 07:56 10/07/24 07:56 10/07/24 07:56 10/07/24 07:56 10/07/24 07:56 10/07/24 09:00 10/07/24 07:56 Laboratory Results - last 24 hr 10/07/24 06:03: WBC 9.9, RBC 3.98 L, Hgb 11.5 L, Hct 36.0 L, MCV 90.5, MCH 28.9, MCHC 31.9, RDW 14.2, Plt Count 229, MPV 9.4, Neut % (Auto) 76.2, Lymph % (Auto) 16.1, [place] % (Auto) 6.9, Eos % (Auto) 0.0 L, Baso % (Auto) 0.0 L, Neut # (Auto) 7.6, Lymph # (Auto) 1.6, [place] # (Auto) 0.7, Eos # (Auto) 0.0, Baso # (Auto) 0.0, Sodium 136, Potassium 3.2 L, Chloride 104, Carbon Dioxide 26, Anion Gap 9.2, BUN 15, Creatinine 0.80, Estimated Creat Clear 71, Estimated GFR 73, Est GFR ( Amer) 89 D, Glucose 104 H D, Calcium 9.5 I & O for Last 24 hours: Intake & Output 10/04/24 10/05/24 10/06/24 10/07/24 23:59 23:59 23:59 23:59 Intake Total 2760 / 3860 1343 / 1493 150 / 150 Output Total 600 / 600 1325 / 1325 700 / 700 400 / 400 Balance 2160 / 3260 18 / 168 -550 / -550 -400 / -400 Weight 119.862 kg 124.647 kg 125.191 kg 123.859 kg Constitutional Constitutional: no acute distress *Routine HEENT Exam Head: Present normocephalic Eye: Present EOMI and PERRL ENT: Present mucous membranes moist *Routine Neck Exam Neck: Present supple; Absent lymphadenopathy *Routine Respiratory Exam Respiratory: Present CTA bilaterally *Routine Cardiovascular Exam Cardiovascular: Present RRR *Routine Abdominal Exam Abdominal: Present soft and normoactive bowel sounds; Absent tenderness Comments: covered with dressing *Routine Extremities Exam Extremities: Absent cyanosis, clubbing or edema *Routine Skin Exam Skin: Present warm; Absent rash *Routine Neurological Exam Neurological: Present alert and oriented X3 Assessment and Plan *Assessment and plan (1) Cancer of descending colon: Status: Acute Category: Medical Code(s): C18.6 - Malignant neoplasm of descending colon (2) (HFpEF) heart failure with preserved ejection fraction: Status: Acute Qualifiers: Heart failure chronicity: chronic Qualified Code(s): I50.32 - Chronic diastolic (congestive) heart failure Category: Medical Code(s): I50.30 - Unspecified diastolic (congestive) heart failure (3) Bipolar II disorder, moderate, depressed, with anxious distress: Status: Acute Category: Medical Code(s): F31.81 - Bipolar II disorder (4) HLD (hyperlipidemia): Status: Acute Qualifiers: Hyperlipidemia type: unspecified Qualified Code(s): E78.5 - Hyperlipidemia, unspecified Category: Medical Code(s): E78.5 - Hyperlipidemia, unspecified (5) Elevated BP without diagnosis of hypertension: Status: Acute Category: Medical Code(s): R03.0 - Elevated blood-pressure reading, without diagnosis of hypertension (6) Morbid obesity with BMI of 40.0-44.9, adult: Status: Chronic Category: Medical Code(s): E66.01 - Morbid (severe) obesity due to excess calories; Z68.41 - Body mass index [BMI] 40.0-44.9, adult Plan 59-year-old female with history of HFpEF, morbid obesity, bipolar 2. Discussed case with surgery, she underwent partial colectomy 10/04. s/p surgery advance diet per general surgery recommendations, encourage patient to have more mobility in room. DC franciscosyn ok to advance diet to [facility] [place] dc 1-2 days pending improvement Chronic HFpEF - Does not appear to be in acute exacerbation at this time. Will continue Bumex 1 mg transition to IV daily - Continue dapagliflozin 10 mg daily - Continue spironolactone 25 mg daily - On prophylactic antibiotics post abdominal surgery. Will not broaden at this time, low suspicion for pneumonia. Continue Zosyn 4.5 g every 6 hours scheduled - Monitor for improvement with diuresis Morbid obesity complicates all aspects of her care Sleep disorder: Continue temazepam 15 mg nightly Bipolar 2: Continue home regimen of Paxil 40 mg daily, lumateperone 42 mg daily. Appears stable Partial colectomy 10/04/2024. -Defer management to surgery. Advance diet per surgery recommendations - Morphine 2 mg IV every 2 hours for moderate to severe pain. Monitor for toxicity. Repeat BMP and CBC ordered for the morning. Continue bowel regimen with docusate 100 mg daily Continue pantoprazole 40 mg nightly IV for GERD/GI prophylaxis Full code N.p.o. except ice chips Lovenox 40 mg subcu twice daily DC zosyn ok to advance diet to [facility] dc 1-2 days pending improvement
[2024-10-07] MEDS: POTASSIUM CHLORIDE 20MEQ TAB 40 MEQ PO ×2 (11:29→15:34)
--- NOTE | 2024-10-07 16:33 | PC.NURSE ---
Pt is currently resting in bed. Has tolerated sitting up in the chair this shift. Uses BSC to void. Pt states she had a BM early this AM. Tolerating fluids. Has c/o chronic back pain. Pt has been encouraged to ambulate and sit up in chair. She remains on O2. O2 titrated from 4L to 2L. Call light is within reach. Family at bedside.
[2024-10-07] MEDS: PANTOPRAZOLE 40MG VIAL 40 MG IV (21:33)
[2024-10-07] MEDS: PARoxetine 20MG TABLET 40 MG PO (21:33)
[2024-10-07] MEDS: CAPLYTA 42 MG 1 EACH PO (21:33)
[2024-10-07] MEDS: SODIUM CHLORIDE 0.9% 10ML VIAL 10 ML IV (21:33)
[2024-10-07] MEDS: TEMAZEPAM 15MG CAPSULE 15 MG PO (21:34)
[2024-10-07] MEDS: MORPHINE 2MG/ML SYRINGE 2 MG IV (21:46)
[2024-10-08 04:00] VITALS: BP 136/67; PULSE 86; RESP 18; TEMP 36.7; O2SAT 96; BMI 44.3
--- NOTE | 2024-10-08 04:26 | PC.NURSE ---
Pt received pain medication once over night. Abd area is round, distended, and firm. Pt went with out o2 for about 3 hours last night then when she went to sleep she started desatting. Restarted the O2 at 2 l NC. Call light with in reach, is in the room sleeping. BOBBI HARRIS RN
[2024-10-08 06:25] LABS: Hematocrit 33.1 % (37.0-47.0); Hemoglobin 10.6 g/dL (12.2-16.2); Immature Granulocytes % 0.9 %; Mean Corpuscular HGB Conc 32.0 g/dL (31.8-35.4); Mean Corpuscular Hemoglobin 29.0 pg (27.0-31.2); Mean Corpuscular Volume 90.7 fl (81-99); Nucleated Red Blood Cells % 0.3 %; Platelet Count 237 K/mm3 (142-424); Red Blood Count 3.65 M/mm3 (4.20-5.40); Red Cell Distribution Width-SD 45.7 fL; White Blood Count 7.4 K/mm3 (4.8-10.8)
[2024-10-08 06:27] LABS: Albumin Level 3.0 g/dl (3.5-5.0); Chloride 101 mmol/L (98-107); Sodium 132 mmol/L (136-145)
[2024-10-08 06:28] LABS: Potassium 3.1 mmoL/L (3.5-5.1)
[2024-10-08 06:30] LABS: Alanine Aminotransferase 34 U/L (12-78); Albumin/Globulin Ratio 0.9 (1.1-1.8); Alkaline Phosphatase 59 U/L (38-126); Anion Gap 6.1 mEq/L (5-15); Aspartate Amino Transferase 55 U/L (14-36); Bilirubin,Total 0.3 mg/dl (0.2-1.3); Blood Urea Nitrogen 11 mg/dl (7-17); Calcium 9.1 mg/dl (8.4-10.2); Carbon Dioxide 28 mmol/L (22.0-30.0); Creatinine Clearance Estimated 95 mL/min (50-200); Creatinine,Serum 0.60 mg/dl (0.52-1.04); Estimated Glomerular Filt Rate 102 ml/min (>60); GFR (African American) 124 ML/MIN (>60); Globulin 3.4 g/dL (1.3-3.2); Glucose 106 mg/dl (74-100); Total Protein,Serum 6.4 g/dl (6.3-8.2)
[2024-10-08 06:31] LABS: Magnesium 2.3 mg/dl (1.6-2.3)
--- NOTE | 2024-10-08 07:09 | EXP.SURG.PN ---
Subjective Patient reports: no new complaints, flatus and bowel movement Exam Data for Last 24 hours Vital signs and Labs for Last 24 Hours: Temp Pulse Resp BP Pulse Ox O2 Del Method O2 Flow Rate 98.0 F 86 18 136/67 96 Nasal Cannula 2 10/08/24 04:00 10/08/24 04:00 10/08/24 04:00 10/08/24 04:00 10/08/24 04:00 10/08/24 06:20 10/08/24 06:20 Laboratory Results - last 24 hr 10/08/24 05:58: WBC 7.4 D, RBC 3.65 L, Hgb 10.6 L, Hct 33.1 L, MCV 90.7, MCH 29.0, MCHC 32.0, RDW 13.8, Plt Count 237, MPV 9.4, Neut % (Auto) 68.4, Lymph % (Auto) 22.3, [place] % (Auto) 8.3, Eos % (Auto) 0.0 L, Baso % (Auto) 0.1, Neut # (Auto) 5.1, Lymph # (Auto) 1.7, [place] # (Auto) 0.6, Eos # (Auto) 0.0, Baso # (Auto) 0.0, Sodium 132 L, Potassium 3.1 L, Chloride 101, Carbon Dioxide 28, Anion Gap 6.1, BUN 11 D, Creatinine 0.60 D, Estimated Creat Clear 95, Estimated GFR 102, Est GFR ( Amer) 124 D, Glucose 106 H, Calcium 9.1, Magnesium 2.3, Total Bilirubin 0.3, AST 55 H, ALT 34, Alkaline Phosphatase 59, Total Protein 6.4, Albumin 3.0 L, Globulin 3.4 H, Albumin/Globulin Ratio 0.9 L I & O for Last 24 hours: Intake & Output 10/05/24 10/06/24 10/07/24 10/08/24 11:59 11:59 11:59 11:59 Intake Total 1803 / 1803 150 / 150 1260 / 1260 Output Total 1025 / 1025 1300 / 1600 700 / 700 300 / 300 Balance 778 / 778 -1150 / -1450 -700 / -700 960 / 960 Weight 274 lb 12.8 oz 276 lb 273 lb 1 oz 276 lb Constitutional Constitutional: no acute distress *Routine Respiratory Exam Respiratory: Absent respiratory distress *Routine Cardiovascular Exam Cardiovascular: Present RRR *Routine Abdominal Exam Abdominal: Present soft Comments: Incision healing without evidence of infection Progress Note: A&P Assessment and plan (1) Cancer of descending colon: Status: Acute Assessment and plan: Overall, doing well postoperative day 4 status post left hemicolectomy Overall management as per primary service Okay from surgical standpoint for discharge home with close outpatient follow-up
[2024-10-08 08:00] VITALS: BP 139/70; PULSE 99; RESP 18; TEMP 36.8; O2SAT 95
[2024-10-08] MEDS: SPIRONOLACTONE 25MG TABLET 25 MG PO (08:31)
[2024-10-08] MEDS: DAPAGLIFLOZIN PROPANEDIOL 10 MG TABLET PO (08:31)
[2024-10-08] MEDS: POTASSIUM CHLORIDE 20MEQ TAB 40 MEQ PO (08:32)
[2024-10-08] MEDS: BUMETANIDE 1MG/4ML VIAL 1 MG IV (08:32)
--- NOTE | 2024-10-08 08:55 | PC.NURSE ---
Addendum entered by Michelle Poon RN 10/08/24 09:01: 16 total aleksandra removed Original Note: per surgeon order, approximately 1/2 aleksandra removed and replaced with steri strips. pt tolerated well. incision remains c/d/i. no redness or tenderness noted.
--- NOTE | 2024-10-08 09:01 | CARE MANAGER ---
Patient is unable to make it to the bathroom due to mobility impairment and will require a bedside commode.
--- NOTE | 2024-10-08 16:13 | EXP.DC.SUM ---
General Admission date:: 10/04/24 Discharge date: 10/08/24 HPI HPI HPI: Ms. Núñez is a 59-year-old female with morbid obesity, HFpEF, mood disorder, who presented with elective partial colectomy due to recently diagnosed adenocarcinoma. Underwent partial colectomy with end to end anastomosis on 10/04. Procedure complicated by inflammation and patient's body habitus. Successful anastomosis achieved. Admitted to ICU after procedure for further monitoring. Discussed case with surgery this morning, they request to transfer patient to our service for medical management and they will assist with surgical follow-up for resection. Of note, she had a myocardial perfusion scan on September 21 and left heart cath on September 24. Did not require any stents at that time. In regard to her GI history, she had a colonoscopy on August 09 that showed apple core circumferential mass at 50 cm. Pathology positive for invasive moderately differentiated adenocarcinoma. CEA of 1.8. This morning on rounds she complains of abdominal pain and feels short of breath. Currently on 4 L. Was on room air prior to surgery. Denies chest pain, nausea or vomiting. Feels she has gas to pass but cannot pass flatus yet. Pain with movement and ambulation. Owen removed this morning. Afebrile. Hemodynamically stable. at bedside. Hospital Course Hospital Course Hospital Course: 59-year-old female with history of HFpEF, morbid obesity, bipolar 2. Discussed case with surgery, she underwent partial colectomy 10/04. patient is tolerating diet, ok to dc from GS standpoint s/p surgery advance diet per general surgery recommendations, encourage patient to have more mobility in room. Exam Data for Last 24 hours Vital signs and Labs for Last 24 Hours: Temp Pulse Resp BP Pulse Ox O2 Del Method O2 Flow Rate 98.3 F 99 H 18 139/70 95 Room Air 1 10/08/24 08:00 10/08/24 08:00 10/08/24 08:00 10/08/24 08:00 10/08/24 08:00 10/08/24 11:00 10/08/24 08:00 I & O for Last 24 hours: Intake & Output 10/08/24 10/09/24 10/10/24 10/11/24 23:59 23:59 23:59 23:59 Intake Total 600 / 600 Output Total 1000 / 1000 Balance -400 / -400 Weight 125.191 kg DS: Diagnosis Discharge Diagnosis (1) Cancer of descending colon: Status: Acute Code(s): C18.6 - Malignant neoplasm of descending colon Meds Home Medications and Allergies Home Medications ?Medication ?Instructions ?Recorded ?Confirmed ?Type coQ10 (ubiquinol) 100 mg capsule 100 mg PO BID #180 caps 08/01/23 10/28/24 Rx (Qunol Usman CoQ10) celecoxib 100 mg capsule (Celebrex) 100 mg PO BID #60 caps 04/22/24 10/28/24 Rx cholecalciferol (vitamin D3) 50 100 mcg (2 x 50 mcg (2,000 unit)) 04/24/24 10/28/24 Rx mcg (2,000 unit) capsule PO DAILY #180 caps estradiol 0.1 mg/24 hr weekly 1 patch transdermal WEEKLY #12 ea 07/30/24 10/28/24 Rx transdermal patch lumateperone 42 mg capsule 42 mg PO DAILY #30 caps 09/15/24 10/28/24 Rx (Caplyta) paroxetine HCl 40 mg tablet 40 mg PO DAILY #30 tabs 09/15/24 10/28/24 Rx temazepam 15 mg capsule 15 mg PO HS #30 caps 09/15/24 10/28/24 Rx bumetanide 1 mg tablet 1 mg PO DAILY #30 tabs 09/24/24 10/28/24 Rx dapagliflozin propanediol 10 mg 10 mg PO DAILY #30 tabs 09/29/24 10/28/24 Rx tablet (Farxiga) sacubitril 24 mg-valsartan 26 mg 1 tab PO BID #60 tabs 10/13/24 10/28/24 Rx tablet (Entresto) spironolactone 25 mg tablet 25 mg PO DAILY #30 tabs 10/13/24 10/28/24 Rx (Aldactone) New Prescriptions to Start Prescriptions: Allergies Allergy/AdvReac Type Severity Reaction Status Date / Time codeine Allergy Mild Vomiting Verified 10/28/24 14:23 Discharge Plan Disposition Patient Disposition: Home, Self-Care Condition: Good Discharge Order Discharge Orders: Discharge Order (Routine); Ordered 10/08/24 Ordered By: Christopher Wisdom Follow up Plan Follow up with: Fer Mitchell MD [Staff Physician, General Surgery] - 10/13/24 2:30 pm Prescriptions/Medication Reconciliation: Continued celecoxib [Celebrex] 100 mg capsule 100 mg PO BID Qty: 60 2RF paroxetine HCl 40 mg tablet 40 mg PO DAILY Qty: 30 2RF temazepam 15 mg capsule 15 mg PO HS Qty: 30 2RF Caplyta 42 mg capsule 42 mg PO DAILY Qty: 30 2RF estradiol 0.1 mg/24 hr patch weekly 1 patch transdermal WEEKLY Qty: 12 3RF dapagliflozin propanediol [Farxiga] 10 mg tablet 10 mg PO DAILY Qty: 30 2RF coQ10 (ubiquinol) [Qunol Usman CoQ10] 100 mg capsule 100 mg PO BID Qty: 180 3RF cholecalciferol (vitamin D3) 50 mcg (2,000 unit) capsule 100 mcg PO DAILY Qty: 180 3RF bumetanide 1 mg Tablet 1 mg PO DAILY Qty: 30 3RF No Action sacubitril-valsartan [Entresto] 24-26 mg tablet 1 tab PO BID Qty: 60 2RF spironolactone [Aldactone] 25 mg tablet 25 mg PO DAILY Qty: 30 2RF Other Ambulatory Orders: Home Medical Equipment (Routine) Location: None Selected Ordered By: Christopher Wisdom Problem Reconciliation Problems Reviewed?: Yes Patient Discharge Instructions ACTIVITY: Continue current activity DIET: continue same diet Patient Instructions: DI for Colectomy, DI for Surgical Site Infection, Catheter-Associated Urinary Tract Infection, Stop Light Heart Failure, Stop Light Infection Print Language: Citizen Of [place] Providers Primary Care Provider: Sondra Diaz Provider: Fer Mitchell Attending Provider: Colt Huntley
--- NOTE | 2024-10-11 11:01 | SW/DCPLANNER ---
Spoke with patient on the phone. Patient stated that she is doing good. Patient stated that she aware of her upcoming appointment. Patient stated that she was not prescribed any new medicine. Patient stated that she does not have any concerns or questions at this time. Shaheen Sharp
== END 2024-10-08 11:29 | disposition home or self-care (01) | DRG 330 ==
LOC: 2ND 12:40 → ICU 12:43 → 2ND 10-05 15:07
PROVIDERS: Admitting Provider Surgery; PCP Nurse Practitioner Family; Visit Provider Internal Medicine Adolescent Medicine
PROC: 0DTG0ZZ Resection of Left Large Intestine, Open Approach (ICD-10-PCS; CPT 44140; principal; 2024-10-04 07:30)
DX: C18.6 Malignant neoplasm of descending colon (principal); F31.81 Bipolar II disorder; I50.32 Chronic diastolic (congestive) heart failure; Z68.41 Body mass index [BMI] 40.0-44.9, adult; E78.5 Hyperlipidemia, unspecified; R03.0 Elevated blood-pressure reading, without diagnosis of hypertension; E66.01 Morbid (severe) obesity due to excess calories; G47.9 Sleep disorder, unspecified; D72.829 Elevated white blood cell count, unspecified; R00.0 Tachycardia, unspecified; Z79.899 Other long term (current) drug therapy
CPT/HCPCS: 36415; 51702; 71045; 80048; 80053; 81001; 83735; 85025; 86850; 88309; 97110; 97116; 97163; 97530; J0690; J1100; J1650; J1836; J1939; J2003; J2175; J2250; J2270; J2405; J2470; J2543; J2704; J3010; J7030; J7120

== ENCOUNTER 2024-11-10 10:37 | Outpatient (CLI) | payer OTHER, SELFPAY ==
--- OUTSIDE RECORDS SUMMARY | 2024-11-10 10:40 | XMS_ITS | Clinical Summary ---
Author Organization Healthcare Address [address] [place] [address] Care Team Providers Care Healthcare Insurance Sales Agent Name Role Phone Unavailable Primary Care Provider [...]
[2024-11-10 12:31] LABS: Anion Gap 14.2 mEq/L (5-15); Blood Urea Nitrogen 11 mg/dl (7-17); Calcium 9.5 mg/dl (8.4-10.2); Carbon Dioxide 25 mmol/L (22.0-30.0); Chloride 104 mmol/L (98-107); Creatinine,Serum 0.60 mg/dl (0.52-1.04); Estimated Glomerular Filt Rate 102 ml/min (>60); GFR (African American) 124 ML/MIN (>60); Glucose 92 mg/dl (74-100); Potassium 4.2 mmoL/L (3.5-5.1); Sodium 139 mmol/L (136-145)
== END 2024-11-10 23:59 | disposition home or self-care (01) ==
LOC: LAB 10:38
PROVIDERS: PCP Nurse Practitioner Family; Visit Provider Nurse Practitioner Family
DX: E78.5 Hyperlipidemia, unspecified (principal)
CPT/HCPCS: 36415; 80048

== ENCOUNTER 2024-12-14 12:10 | Outpatient (CLI) | payer OTHER, SELFPAY ==
--- NOTE | 2024-12-14 12:12 | XR_ITS ---
FINAL REPORT CLINICAL HISTORY: left knee pain FINDINGS: LEFT KNEE 3 views of the left knee were obtained. There is no acute fracture or dislocation. There is mild degenerative change. Visualized joint spaces are normally aligned. Soft tissues are unremarkable. IMPRESSION: No acute bony abnormality. Reviewed, Interpreted and Dictated by Padmini Randolph MD Transcribed by Lauren Sibley Authenticated and [facility]
--- OUTSIDE RECORDS SUMMARY | 2024-12-14 12:15 | XMS_ITS | Clinical Summary ---
Author Organization Healthcare Address [address] [place] [address] Care Team Providers Care Accounting Reconciliation Clerk Name Role Phone Unavailable Primary Care Provider [...]
== END 2024-12-14 23:59 | disposition home or self-care (01) ==
LOC: RAD 12:11
PROVIDERS: PCP Nurse Practitioner Family; Visit Provider Physician Assistant
DX: M17.12 Unilateral primary osteoarthritis, left knee (principal)
CPT/HCPCS: 73562

== ENCOUNTER 2024-12-16 14:02 | Outpatient (CLI) | payer OTHER, SELFPAY ==
--- OUTSIDE RECORDS SUMMARY | 2024-12-16 14:04 | XMS_ITS | Clinical Summary ---
Author Organization Healthcare Address [address] [place] [address] Care Team Providers Care Motocross Racer Name Role Phone Unavailable Primary Care Provider [...]
--- NOTE | 2024-12-16 15:00 | CT_ITS ---
FINAL REPORT TECHNIQUE: Axial imaging of the chest is obtained after the administration of contrast. 3-D MIP reformatted images were also obtained and reviewed per PE protocol. This study was performed with techniques to keep radiation doses as low as reasonably achievable (ALARA). Individualized dose reduction techniques using automated exposure control or adjustment of mA and/or kV according to the patient's size were employed. CLINICAL HISTORY: sob,cp, eval for pe COMPARISON: CT of the chest dated 09/01/2024. FINDINGS: The pulmonary arteries are well filled. There is no evidence of pulmonary embolus. There is no aortic dissection. Heart size is normal. There is no mediastinal, hilar, or axillary lymphadenopathy. The lungs are clear. There is no pleural or pericardial effusion. Limited evaluation of the upper abdomen is without acute abnormality. No acute osseous abnormality. IMPRESSION: No evidence of pulmonary embolism or aortic dissection. Reviewed, Interpreted and Dictated by Padmini Randolph MD Transcribed by Jana Henning Authenticated and [facility]
[2024-12-16] MEDS: 0.9 % SODIUM CHLORIDE 50 ML VIAL 10 ML IV (15:09)
[2024-12-16] MEDS: IOPAMIDOL-370 (76%);100ML BOTTLE 85 ML IV (15:09)
== END 2024-12-16 23:59 | disposition home or self-care (01) ==
LOC: RAD 14:02
PROVIDERS: PCP Nurse Practitioner Family; Visit Provider Nurse Practitioner Family
DX: I50.30 Unspecified diastolic (congestive) heart failure (principal)
CPT/HCPCS: 71275; Q9967

== ENCOUNTER 2025-01-03 10:14 | Outpatient (CLI) | payer OTHER, SELFPAY ==
--- NOTE | 2025-01-03 10:18 | XR_ITS ---
FINAL REPORT CLINICAL HISTORY: Low back pain COMPARISON: None FINDINGS: 3 views of the lumbar spine were obtained. There is no evidence of fracture. There is no malalignment. The vertebrae are normal in height. There is facet sclerosis in the lower lumbar spine. [id number] hypertrophic changes of degenerative disc disease. No paraspinous soft tissue abnormalities identified. IMPRESSION: Degenerative changes without acute bony abnormality. Reviewed, Interpreted and Dictated by Otto Hanson MD Transcribed by Haritha Dennis Authenticated and . [facility]
--- OUTSIDE RECORDS SUMMARY | 2025-01-03 10:26 | XMS_ITS | Clinical Summary ---
Author Organization Healthcare Address [address] [place] [address] Care Team Providers Care Licensed Embalmer Name Role Phone Unavailable Primary Care Provider [...]
== END 2025-01-03 23:59 | disposition home or self-care (01) ==
LOC: RAD 10:15
PROVIDERS: PCP Nurse Practitioner Family; Visit Provider Nurse Practitioner Family
DX: M47.816 Spondylosis without myelopathy or radiculopathy, lumbar region (principal)
CPT/HCPCS: 72100

== ENCOUNTER 2025-01-11 08:01 | Outpatient (CLI) | payer OTHER, SELFPAY ==
[2025-01-11 08:34] LABS: Hematocrit 44.3 % (37.0-47.0); Hemoglobin 14.4 g/dL (12.2-16.2); Immature Granulocytes % 0.5 %; Mean Corpuscular HGB Conc 32.5 g/dL (31.8-35.4); Mean Corpuscular Hemoglobin 28.2 pg (27.0-31.2); Mean Corpuscular Volume 86.9 fl (81-99); Nucleated Red Blood Cells % 0 %; Platelet Count 228 K/mm3 (142-424); Red Blood Count 5.10 M/mm3 (4.20-5.40); Red Cell Distribution Width-SD 49.0 fL; White Blood Count 7.8 K/mm3 (4.8-10.8)
[2025-01-11 08:58] LABS: Albumin Level 5.0 g/dl (3.5-5.0); Chloride 97 mmol/L (98-107); Sodium 137 mmol/L (136-145)
[2025-01-11 08:59] LABS: Potassium 3.6 mmoL/L (3.5-5.1)
[2025-01-11 09:01] LABS: Alanine Aminotransferase 20 U/L (12-78); Albumin/Globulin Ratio 2.3 (1.1-1.8); Alkaline Phosphatase 81 U/L (38-126); Anion Gap 10.6 mEq/L (5-15); Aspartate Amino Transferase 22 U/L (14-36); Bilirubin,Total 0.7 mg/dl (0.2-1.3); Blood Urea Nitrogen 17 mg/dl (7-17); Carbon Dioxide 33 mmol/L (22.0-30.0); Creatinine,Serum 0.80 mg/dl (0.52-1.04); Estimated Glomerular Filt Rate 73 ml/min (>60); GFR (African American) 89 ML/MIN (>60); Globulin 2.2 g/dL (1.3-3.2); Total Protein,Serum 7.2 g/dl (6.3-8.2)
[2025-01-11 09:02] LABS: Calcium 9.4 mg/dl (8.4-10.2); Glucose 110 mg/dl (74-100)
[2025-01-12 12:13] LABS: CEA 2.7 ng/mL (0.0-4.7)
== END 2025-01-11 23:59 | disposition home or self-care (01) ==
LOC: LAB 08:01
PROVIDERS: PCP Nurse Practitioner Family; Visit Provider Internal Medicine Medical Oncology
DX: C18.6 Malignant neoplasm of descending colon (principal)
CPT/HCPCS: 36415; 80053; 82378; 85025

== ENCOUNTER 2025-02-15 10:42 | Day surgery (SDC) | payer OTHER, SELFPAY ==
[2025-02-15 10:54] VITALS: BP 117/78; PULSE 70; RESP 16; O2SAT 96; BMI 44.0
[2025-02-15 11:05] VITALS: BP 156/81; PULSE 70; RESP 18; O2SAT 95
[2025-02-15] MEDS: LIDOCAINE 1% 5ML PF VIAL 5 ML (11:06)
[2025-02-15] MEDS: BUPIVACAINE 0.25% 10ML INJ 25 MG IJ (11:06)
[2025-02-15 11:09] VITALS: BP 156/81; RESP 18; O2SAT 95
--- NOTE | 2025-02-15 11:15 | P.PCN_ITS ---
Procedure Anesthesiologist:: Naeem Goodman CRNA Complications:: None
--- NOTE | 2025-02-15 11:15 | EXP.PAIN.PRO ---
Procedure Anesthesiologist:: Naeem Goodman CRNA Complications:: None
[2025-02-15 11:17] VITALS: BP 129/78; PULSE 88; RESP 16; O2SAT 97
--- NOTE | 2025-02-15 11:25 | EXP.PAIN.PRO ---
Procedure Date: 02/15/25 Time: 11:00 Anesthesiologist:: Naeem Goodman CRNA Complications:: None Pre-procedure Diagnosis:: Degenerative disc lumbar spine multilevels. Lumbar radiculopathy. Lumbar spondylosis. Multilevel lumbar facet arthropathy. Post-procedure Diagnosis:: Same. Indications for Procedure:: Patient is a very pleasant 59-year-old female who comes to clinic today for round 1 of lumbar medial branch blocks/facet injection at the bilateral L4-5, L5-S1 level. Patient describes low lumbar back pain as constant, dull, aching. She also reports difficulty with lumbar flexion, extension, left and right rotation. She rates her pain 7/10. Procedure Details:: Informed consent was obtained and the risk and benefits of the procedure was explained to the patient. Patient was taken to the procedure room where noninvasive monitors were placed, including noninvasive blood pressure cuff as well as pulse oximeter. The area over the lumbar spine was cleansed using chlorhexidine as a cleansing solution. I anesthetized the skin and subcutaneous tissues with 1% Lidocaine. I placed 22-gauge spinal needles into the facet joint/ medial branches of L4-L5, and L5-S1 bilaterally. Needle placement was confirmed with fluoroscopy. After confirmation of needle placement, each site was injected with 1 mL of 1% lidocaine and 0.25 % Marcaine 1 mL. Patient tolerated the procedure without difficulty. There were no complications. Plan and Disposition:: Patient was discharged without incident.
== END 2025-02-15 11:17 | disposition home or self-care (01) ==
PROVIDERS: PCP Nurse Practitioner Family; Visit Provider Nurse Anesthetist, Certified Registered
DX: M47.26 Other spondylosis with radiculopathy, lumbar region (principal); M51.16 Intervertebral disc disorders with radiculopathy, lumbar region; F32.9 Major depressive disorder, single episode, unspecified; Z90.711 Acquired absence of uterus with remaining cervical stump; Z98.51 Tubal ligation status; Z56.0 Unemployment, unspecified; Z79.899 Other long term (current) drug therapy; E11.9 Type 2 diabetes mellitus without complications
CPT/HCPCS: 64493; 64494 ×2; J0665; J2003

== ENCOUNTER 2025-03-07 13:24 | Outpatient (CLI) | payer OTHER, SELFPAY ==
--- NOTE | 2025-03-07 13:25 | XR_ITS ---
FINAL REPORT CLINICAL HISTORY: right knee pain FINDINGS: AP, lateral and oblique views of the right knee were obtained. There is no prior exam for comparison. There is no acute osseous abnormality of the right knee. 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 The soft tissues are normal. There is no joint effusion. IMPRESSION: No acute osseous abnormality of the right knee. Degenerative disease. Reviewed, Interpreted and Dictated by Padmini Randolph MD Transcribed by Haritha Dennis Authenticated and [facility]
--- OUTSIDE RECORDS SUMMARY | 2025-03-07 13:28 | XMS_ITS | Clinical Summary ---
Author Organization Healthcare Address [address] [place] [address] Care Team Providers Care Brown Stock Washer Name Role Phone Unavailable Primary Care Provider [...]
== END 2025-03-07 23:59 | disposition home or self-care (01) ==
LOC: RAD 13:25
PROVIDERS: PCP Nurse Practitioner Family; Visit Provider Orthopaedic Surgery
DX: M17.11 Unilateral primary osteoarthritis, right knee (principal)
CPT/HCPCS: 73562